=== PATIENT | female | born 1935 | race Caucasian/White ===

== ENCOUNTER 2017-02-17 15:41 | Emergency (ER) | payer MEDICARE, BC ==
--- NOTE | 2017-02-17 16:28 | EDM.PDOC ---
ED HPI GENERAL MEDICAL PROBLEM - General Chief Complaint: Respiratory Problem Stated Complaint: Shortness of breath Time Seen by Provider: 02/17/17 16:15 Source of Information: Reports: Patient, RN Notes Reviewed History Limitations: Reports: No Limitations - History of Present Illness INITIAL COMMENTS - FREE TEXT/NARRATIVE: 81 year old female sent to the ED by her PCP Dr. Bev Del Cid. Three days ago she presented to the clinic for dyspnea with exertion. She had bilateral lower extremity ultrasound done and was told she has blood clot in her right leg. She was started on Xarelto. A d-dimer was ordered but is a send out. Today the d-dimer came back significantly elevated. The patient was notified and was brought in for a PE study. She was found to have bilateral PEs and was sent here for further evaluation. She was also started on Amoicillin for a lower left lower extremity cellulitis. The patient reports that she's had DVTs in the past and been off and on blood thinners. She denies history of clotting disorders. No previous PE. She reports dyspnea on exertion for the past week. She denies pleuritic chest pain, cough, wheezing or hemoptysis. She reports a brief episode of chest pain last week that resolved on it's own. On Friday she had heart burn and tool Rolaids and her symptoms resolved. No additional chest pain. She denies cardiac history. No recent travel. She is not on any hormonal replacement therapy. Right Leg Pain Score (Numeric/FACES): 4 - Related Data Allergies Allergy/AdvReac Type Severity Reaction Status Date / Time propoxyphene Allergy Nausea and Verified 03/15/14 12:04 Vomiting sitagliptin [From Januvia] Allergy Edema Verified 02/17/17 15:53 Home Meds: Home Meds Aspirin [Halfprin] 81 mg PO DAILY 03/15/14 [History] Atenolol [Tenormin] 25 mg PO DAILY 03/15/14 [History] Furosemide 40 mg PO BID 03/15/14 [History] Losartan [Cozaar] 50 mg PO DAILY 03/15/14 [History] Lutein Extract/Zeaxanthin Ext [Lutein 15 MG Softgel] 1 cap PO DAILY 03/15/14 [ History] metFORMIN [Glucophage] 1,000 mg PO DAILY 03/15/14 [History] metFORMIN [Glucophage] 500 mg PO BEDTIME 03/15/14 [History] Amoxicillin 500 mg PO TID 02/17/17 [History] Oxybutynin Chloride [Ditropan Xl] 5 mg PO DAILY 02/17/17 [History] Potassium Chloride 20 meq PO DAILY 02/17/17 [History] Rivaroxaban [Xarelto] 20 mg PO DAILY 02/17/17 [History] glipiZIDE [Glipizide ER] 20 mg PO DAILY 02/17/17 [History] Past Medical History HEENT History: Reports: Impaired Vision Other HEENT History: wears corrective lenses Cardiovascular History: Reports: Blood Clots/VTE/DVT, Hypertension Respiratory History: Reports: PE, SOB Gastrointestinal History: Reports: GERD Genitourinary History: Reports: Urinary Incontinence 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 RADIOLOGY History: Reports: , Other (See Below) Other OB/BYN History: bilateral breast reduction for back pain Endocrine/Metabolic History: Reports: Diabetes, Type II Hematologic History: Reports: Anticoagulation Therapy - Infectious Disease History Infectious Disease History: Reports: Chicken Pox, Measles, Mumps - Past Surgical History HEENT Surgical History: Reports: None Cardiovascular Surgical History: Reports: None Respiratory Surgical History: Reports: None GI Surgical History: Reports: Appendectomy Female Surgical History: Reports: Hysterectomy Endocrine Surgical History: Reports: None Musculoskeletal Surgical History: Reports: Other (See Below) Other Musculoskeletal Surgeries/Procedures:: 2003 bilateral total knee replacement Social & Family History - Tobacco Use Smoking Status *Q: Former Smoker Used Tobacco, but Quit: Yes Month Tobacco Last Used: 1981 Second Hand Smoke Exposure: No - Caffeine Use Caffeine Use: Reports: Coffee - Alcohol Use Days Per Week of Alcohol Use: 0 Number of Drinks Per Day: 0 Total Drinks Per Week: 0 - Recreational Drug Use Recreational Drug Use: No Drug Use in Last 12 Months: No ED ROS GENERAL - Review of Systems Review Of Systems: See Below Constitutional: Reports: No Symptoms. Denies: Fever, Chills Respiratory: Reports: Shortness of Breath. Denies: Wheezing, Pleuritic Chest Pain, Cough, Sputum, Hemoptysis Cardiovascular: Reports: Chest Pain, Dyspnea on Exertion. Denies: Edema, Lightheadedness, Palpitations, Syncope Musculoskeletal: Reports: Other (left lower extremity redness and swelling. ) Skin: Reports: Change in Color (lower extremities ) ED EXAM, GENERAL - Physical Exam Exam: See Below Exam Limited By: No Limitations General Appearance: Alert, No Apparent Distress, Obese Respiratory/Chest: No Respiratory Distress, Lungs Clear, Normal Breath Sounds, No Accessory Muscle Use, Chest Non-Tender Cardiovascular: Normal Peripheral Pulses, Regular Rate, Rhythm, No Murmur, Other (Small amount of non-pitting edema to feet bilaterally. She has swelling to the left calf, proximal to the red area of cellulitis. ) GI/Abdominal: Normal Bowel Sounds, Soft, Non-Tender Extremities: Increased Warmth (left ankle and calf), Redness (left ankle and calf). No: Stephanie's Sign, Leg Pain Neurological: Alert, Normal Cognition EKG INTERPRETATION EKG Date: 02/17/17 Time: 16:45 Rhythm: NSR Rate (Beats/Min): 62 [place]: Normal P-Wave: Present QRS: Normal ST-T: Normal QT: Normal EKG Interpretation Comments: EKG read by Dr. Tierney. Occasional PACs. Lowe voltage precordial leads. T wave inverted III and flat in AVF - nonspecific. Course - Vital Signs Last Recorded V/S: Last Vital Signs Temp 97.4 F 02/17/17 15:50 Pulse 63 02/17/17 18:25 Resp 20 02/17/17 18:25 BP 131/68 02/17/17 18:25 Pulse Ox 98 02/17/17 18:25 - Orders/Labs/Meds Orders: Active Orders 24 hr Category Date Time Status EKG 12 Lead [EKG Documentation Completion] [RC] STAT Care 02/17/17 16:27 Active Labs: Laboratory Tests 02/17/17 02/17/17 02/17/17 Range/Units 15:55 15:55 16:48 WBC 8.85 (3.98-10.04) K/mm3 RBC 4.97 (3.98-5.22) M/mm3 Hgb 13.8 (11.2-15.7) gm/L Hct 40.3 (34.1-44.9) % MCV 81.1 (79.4-94.8) fl MCH 27.8 (25.6-32.2) pg MCHC 34.2 (32.2-35.5) g/dl RDW Std Deviation 41.9 (36.4-46.3) fL Plt Count 209 (182-369) K/mm3 MPV 11.3 (9.4-12.3) fl Neutrophils % (Manual) 66 H (40-60) % Band Neutrophils % 3 (0-10) % Lymphocytes % (Manual) 21 (20-40) % Atypical Lymphs % 0 % Monocytes % (Manual) 9 (2-10) % Eosinophils % (Manual) 1 (0.7-5.8) % Basophils % (Manual) 0 L (0.1-1.2) Platelet Estimate Adequate RBC Morph Comment Normal Sodium 140 (136-145) mEq/L Potassium 4.1 (3.5-5.1) mEq/L Chloride 102 (98-107) mEq/L Carbon Dioxide 27 (21-32) mEq/L Anion Gap 15.1 H (5-15) BUN 29 H (7-18) mg/dL Creatinine 1.3 H (0.55-1.02) mg/dL Est Cr Clr Drug Dosing 28.55 mL/min Estimated GFR (MDRD) 39 (>60) mL/min BUN/Creatinine Ratio 22.3 H (14-18) Glucose 229 H (83-115) mg/dL Calcium 10.0 (8.5-10.1) mg/dL Total Bilirubin 0.5 (0.2-1.0) mg/dL AST 17 (15-37) U/L ALT 23 (14-59) U/L Alkaline Phosphatase 75 (46-116) U/L Troponin I < 0.017 (0.00-0.056) ng/mL [id number] Pept 732 H (0-450) pg/mL Total Protein 7.0 (6.4-8.2) g/dl Albumin 3.3 L (3.4-5.0) g/dl Globulin 3.7 gm/dL Albumin/Globulin Ratio 0.9 L (1-2) - Re-Assessments/Exams Free Text/Narrative Re-Assessment/Exam: CBC is normal. CMP reveals mildly elevated kidney function. Troponin is WNL. Pro -BNP is mildly elevated at 730. She is currently on lasix and this was increased to BID today. Records obtained from [facility]. Her d-dimer was 6. CT read by Radiologist Dr. Morillo. Impression: PE in the left upper and both lower lobes. Saddle pulmonary embolism. Lower extremity doppler impression: Incomplete compressibility in the high posteriortibial and right popliteal veins with filling defect and lack of color flow. Findings consistent with DVT ont he right. No DVT on left. Discussed case with Dr. Tierney who agrees with increasing her Lasix. Her vitals are stable. She is not tachycardic and oxygen saturation is well above 90 % on room air. She is not in acute heart failure, therefore admission to hosptial is not indicated. Patient is to continue Xarelto. She was instructed to avoid NSAIDs and ASA. She was instructed to continue her antibiotics. She has a f/u appointment with Dr. Del Cid on of this week. She was instructed to keep this appointment. She was thoroughly educated on return precautions. Departure - Departure Time of Disposition: 18:07 Disposition: Home, Self-Care 01 Condition: Good Clinical Impression: Dyspnea on exertion Pulmonary embolism Qualifiers: Pulmonary embolism type: saddle Chronicity: acute Acute cor pulmonale presence : without acute cor pulmonale Qualified Code(s): I26.92 - Saddle embolus of pulmonary artery without acute cor pulmonale - Discharge Information Instructions: Pulmonary Embolism Referrals: Bev Del Cid MD [Primary Care Provider] - Forms: ED Department Discharge Additional Instructions: Take lasix 40mg twice a day Continue Xarelto 20mg daily as prescribed Follow-up with Dr. Del Cid on as scheduled Return to ER with any new or worsening symptoms - My Orders Last 24 Hours: My Active Orders 02/17/17 16:27 EKG 12 Lead [EKG Documentation Completion] [RC] STAT - Assessment/Plan Last 24 Hours: My Active Orders 02/17/17 16:27 EKG 12 Lead [EKG Documentation Completion] [RC] STAT
[2017-02-17 18:37] VITALS: BP 131/68
== END 2017-02-17 18:25 | disposition home or self-care (01) ==
LOC: JD.ED 15:41
DX: R06.00 Dyspnea, unspecified (principal); I26.92 Saddle embolus of pulmonary artery without acute cor pulmonale; I10 Essential (primary) hypertension; K21.9 Gastro-esophageal reflux disease without esophagitis; E11.9 Type 2 diabetes mellitus without complications; Z86.718 Personal history of other venous thrombosis and embolism; Z79.82 Long term (current) use of aspirin; Z79.84 Long term (current) use of oral hypoglycemic drugs; Z79.899 Other long term (current) drug therapy; Z90.49 Acquired absence of other specified parts of digestive tract; Z90.710 Acquired absence of both cervix and uterus; Z96.653 Presence of artificial knee joint, bilateral; Z87.891 Personal history of nicotine dependence; Z88.8 Allergy status to other drugs, medicaments and biological substances
CPT/HCPCS: 36415; 80053; 83880; 84484; 85025; 93005; 99284; 99284-25

== ENCOUNTER 2017-02-20 11:34 | Inpatient (IN) | payer MEDICARE, BC ==
[2017-02-20] MEDS ORDERED: traMADol 50 MG Tab PO ONE (12:26)
--- NOTE | 2017-02-20 12:43 | EDM.PDOC ---
ED HPI GENERAL MEDICAL PROBLEM - General Chief Complaint: Lower Extremity Injury/Pain Stated Complaint: Leg pain Time Seen by Provider: 02/20/17 12:20 Source of Information: Reports: Patient, RN Notes Reviewed History Limitations: Reports: No Limitations - History of Present Illness INITIAL COMMENTS - FREE TEXT/NARRATIVE: 81 year old female present to the ED with worsening left lower extremity pain, swelling, and redness. Her PCP saw her in the clinic on Friday of last week and started her on Amoxicillin. Today is day 6 of antibiotics. She's had no improvement in symptoms and says the pain is worsening. She has tried Tylenol with no relief in pain. She has developed swelling to her left foot and calf. The redness has remained unchanged. No fever, chills, or sweats. She has been elevating the leg with some relief in symptoms. She had an ultrasound done of her lower extremities on Friday and was found to have a DVT in her right lower extremity. She was started on Xarelto on Friday. She then had a CT angio on Friday and was found to have pulmonary embolisms as well. She was sent to the ER following her CT. I saw her on Friday and she was stable from a cardiopulmonary standpoint on Friday. Today she reports dyspnea with exertion which was present on Friday. She denies dyspnea at rest. She reports substernal chest pressure at times. Left Leg Pain Score (Numeric/FACES): 10 - Related Data Allergies Allergy/AdvReac Type Severity Reaction Status Date / Time propoxyphene Allergy Nausea and Verified 03/15/14 12:04 Vomiting sitagliptin [From Junuvia] Allergy Edema Verified 02/17/17 15:53 Home Meds: Home Meds Aspirin [Halfprin] 81 mg PO DAILY 03/15/14 [History] Atenolol [Tenormin] 25 mg PO DAILY 03/15/14 [History] Furosemide 40 mg PO BID 03/15/14 [History] Losartan [Cozaar] 50 mg PO DAILY 03/15/14 [History] Lutein Extract/Zeaxanthin Ext [Lutein 15 MG Softgel] 1 cap PO DAILY 03/15/14 [ History] metFORMIN [Glucophage] 1,000 mg PO DAILY 03/15/14 [History] metFORMIN [Glucophage] 500 mg PO BEDTIME 03/15/14 [History] Amoxicillin 500 mg PO TID 02/17/17 [History] Oxybutynin Chloride [Ditropan Xl] 5 mg PO DAILY 02/17/17 [History] Potassium Chloride 20 meq PO DAILY 02/17/17 [History] Rivaroxaban [Xarelto] 20 mg PO DAILY 02/17/17 [History] glipiZIDE [Glipizide ER] 20 mg PO DAILY 02/17/17 [History] Amoxicillin 500 mg PO TID 02/20/17 [History] Rivaroxaban [Xarelto] 10 mg PO 02/20/17 [History] Past Medical History HEENT History: Reports: Impaired Vision Other HEENT History: wears corrective lenses Cardiovascular History: Reports: Blood Clots/VTE/DVT, Hypertension Respiratory History: Reports: PE, SOB Gastrointestinal History: Reports: GERD Genitourinary History: Reports: Urinary Incontinence 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 History: Reports: , Other (See Below) Other OB/BYN History: bilateral breast reduction for back pain Endocrine/Metabolic History: Reports: Diabetes, Type II Hematologic History: Reports: Anticoagulation Therapy - Infectious Disease History Infectious Disease History: Reports: Chicken Pox, Measles, Mumps - Past Surgical History HEENT Surgical History: Reports: None Cardiovascular Surgical History: Reports: None Respiratory Surgical History: Reports: None GI Surgical History: Reports: Appendectomy Female Surgical History: Reports: Hysterectomy Endocrine Surgical History: Reports: None Musculoskeletal Surgical History: Reports: Other (See Below) Other Musculoskeletal Surgeries/Procedures:: 2003 bilateral total knee replacement Social & Family History - Tobacco Use Smoking Status *Q: Former Smoker Used Tobacco, but Quit: Yes Month Tobacco Last Used: 1 Second Hand Smoke Exposure: No - Caffeine Use Caffeine Use: Reports: Coffee - Alcohol Use Days Per Week of Alcohol Use: 0 Number of Drinks Per Day: 0 Total Drinks Per Week: 0 - Recreational Drug Use Recreational Drug Use: No Drug Use in Last 12 Months: No Review of Systems - Review of Systems Review Of Systems: See Below Respiratory: Reports: Shortness of Breath. Denies: Wheezing, Pleuritic Chest Pain, Cough, Sputum, Hemoptysis Cardiovascular: Reports: Chest Pain, Edema. Denies: Lightheadedness, Palpitations GI/Abdominal: Reports: No Symptoms ED EXAM, GENERAL - Physical Exam Exam: See Below Exam Limited By: No Limitations General Appearance: Alert, Mild Distress, Obese Respiratory/Chest: No Respiratory Distress, Lungs Clear, Normal Breath Sounds, No Accessory Muscle Use, Chest Non-Tender Cardiovascular: Normal Peripheral Pulses, Regular Rate, Rhythm, No Murmur, Other (non-pitting edema to left foot and calf. No edema to the right lower extremity.) GI/Abdominal: Normal Bowel Sounds, Soft, Non-Tender Neurological: Alert, Oriented, Normal Cognition, No Motor/Sensory Deficits Skin Exam: Warm, Dry, Intact, Erythema (left lower extermity from ankle to mid- calf region. unchanged from Friday's exam. ), Increased Warmth (left lower extremity ) Course - Vital Signs Last Recorded V/S: Last Vital Signs Temp 97.8 F 02/20/17 11:54 Pulse 67 02/20/17 11:54 Resp 18 02/20/17 11:54 BP 154/90 H 02/20/17 11:54 Pulse Ox 98 02/20/17 11:54 - Orders/Labs/Meds Orders: Active Orders 24 hr Category Date Time Status EKG 12 Lead [EKG Documentation Completion] [RC] STAT Care 02/20/17 12:43 Active CBC WITH AUTO DIFF [HEME] Stat Lab 02/20/17 12:43 Results Labs: Laboratory Tests 02/20/17 02/20/17 02/20/17 Range/Units 12:43 12:43 12:43 WBC 7.88 (3.98-10.04) K/mm3 RBC 4.72 (3.98-5.22) M/mm3 Hgb 13.2 (11.2-15.7) gm/L Hct 38.5 (34.1-44.9) % MCV 81.6 (79.4-94.8) fl MCH 28.0 (25.6-32.2) pg MCHC 34.3 (32.2-35.5) g/dl RDW Std Deviation 41.6 (36.4-46.3) fL Plt Count 238 (182-369) K/mm3 MPV 10.7 (9.4-12.3) fl Neut % (Auto) 70.0 (34.0-71.1) % Lymph % (Auto) 21.6 (19.3-51.7) % [place] % (Auto) 5.3 (4.7-12.5) % Eos % (Auto) 1.8 (0.7-5.8) Baso % (Auto) 0.9 (0.1-1.2) % Neut # (Auto) 5.52 (1.56-6.13) K/mm3 Lymph # (Auto) 1.70 (1.18-3.74) K/mm3 [place] # (Auto) 0.42 H (0.24-0.36) K/mm3 Eos # (Auto) 0.14 (0.04-0.36) K/mm3 Baso # (Auto) 0.07 (0.01-0.08) K/mm3 Sodium 137 (136-145) mEq/L Potassium 3.8 (3.5-5.1) mEq/L Chloride 101 (98-107) mEq/L Carbon Dioxide 27 (21-32) mEq/L Anion Gap 12.8 (5-15) BUN 25 H (7-18) mg/dL Creatinine 1.3 H (0.55-1.02) mg/dL Est Cr Clr Drug Dosing TNP Estimated GFR (MDRD) 39 (>60) mL/min BUN/Creatinine Ratio 19.2 H (14-18) Glucose 286 H (83-115) mg/dL Calcium 9.4 (8.5-10.1) mg/dL Total Bilirubin 0.5 (0.2-1.0) mg/dL AST 14 L (15-37) U/L ALT 23 (14-59) U/L Alkaline Phosphatase 75 (46-116) U/L Troponin I < 0.017 (0.00-0.056) ng/mL C-Reactive Protein 3.9 H* (<1.0) mg/dL [id number] Pept 528 H (0-450) pg/mL Total Protein 6.9 (6.4-8.2) g/dl Albumin 3.1 L (3.4-5.0) g/dl Globulin 3.8 gm/dL Albumin/Globulin Ratio 0.8 L (1-2) Meds: Medications Discontinued Medications Generic Name Dose Route Start Last Admin Trade Name Freq PRN Reason Stop Dose Admin Tramadol HCl 50 mg 02/20/17 12:26 02/20/17 12:35 Ultram PO 02/20/17 12:27 50 mg ONETIME ONE Administration - Re-Assessments/Exams Free Text/Narrative Re-Assessment/Exam: Labs reveal normal CBC. WBC is normal and stable from Friday. CRP is mildly elevated at 3.9. CMP reveals BUN 25, creatinine 1.3, glucose 286. Troponin is WNL. EKG reveals SR 59 bpm with no acute changes. Stable from Friday. Read by Dr. Saenz Discussed case with Dr. aSenz. He also examined the patient. We both agree the patient has underlying venous insufficiency but cannot rule out cellulitis. She has failed outpatient antibiotic treatment and would benefit from admission. I spoke to Hospitalist Dr. Hutchison who has accepted care of the patient. She will be admitted as inpatient for cellulitis. Departure - Departure Time of Disposition: 14:09 Disposition: Admitted As Inpatient 66 Condition: Good Clinical Impression: Venous insufficiency Cellulitis Qualifiers: Site of cellulitis: extremity Site of cellulitis of extremity: lower extremity Laterality: left Qualified Code(s): L03.116 - Cellulitis of left lower limb - Discharge Information Referrals: Bev Del Cid MD [Primary Care Provider] - Forms: ED Department Discharge - My Orders Last 24 Hours: My Active Orders 02/20/17 12:43 EKG 12 Lead [EKG Documentation Completion] [RC] STAT CBC WITH AUTO DIFF [HEME] Stat - Assessment/Plan Last 24 Hours: My Active Orders 02/20/17 12:43 EKG 12 Lead [EKG Documentation Completion] [RC] STAT CBC WITH AUTO DIFF [HEME] Stat
[2017-02-20] MEDS ORDERED: Sodium Chloride 0.9% 10 ML Syringe FLUSH PRN (14:09)
--- NOTE | 2017-02-20 14:20 | PCM.HP ---
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 Patient was seen Friday at her primary care' clinic and was treated with amoxicillin. However she feels her leg is not getting any better and pain is getting worse. The redness has remained unchanged. Patient denies any signs of systemic infection. She has been elevating her leg to get some relief. On the same day she was seen at the clinic, patient was found to have DVT on Duplex U/S and PE on CTA. Currently she is on xarelto for treatment. Patient was initially seen on Friday in the emergency department but then was discharged home after no significant workup. Today, she came back for worsening lower extremity complaints. Initial workup in the emergency department shows an unremarkable CBC. Her chemistry is remarkable for BUN of 25, creatinine of 1.3, glucose of 286, AST of 14, proBNP of 528 and albumin of 3.1. Thyroid panel are normal as well as her initial troponin level. Her hemoglobin A1c is 10.50. Her UA is negative for UTI. Since being admitted for medical management of diabetic cellulitis. She is full code. Left Leg Pain Score (Numeric/FACES): 10 Left Ankle Pain Score (Numeric/FACES): 7 - Related Data Allergies/Adverse Reactions: Allergies Allergy/AdvReac Type Severity Reaction Status Date / Time propoxyphene AdvReac Nausea and Verified 02/20/17 14:37 Vomiting sitagliptin [From Januvia] AdvReac Edema Verified 02/20/17 14:37 Home Medications: Home Meds Aspirin [Halfprin] 81 mg PO DAILY 03/15/14 [History] Atenolol [Tenormin] 25 mg PO DAILY 03/15/14 [History] Furosemide 40 mg PO BID 09/16/14 [History] Losartan [Cozaar] 50 mg PO DAILY 03/15/14 [History] Lutein Extract/Zeaxanthin Ext [Lutein 15 MG Softgel] 1 cap PO DAILY 03/15/14 [ History] metFORMIN [Glucophage] 1,000 mg PO DAILY 03/15/14 [History] metFORMIN [Glucophage] 500 mg PO BEDTIME 03/15/14 [History] Oxybutynin Chloride [Ditropan Xl] 5 mg PO DAILY 02/17/17 [History] glipiZIDE [Glipizide ER] 20 mg PO DAILY 02/17/17 [History] Amoxicillin 500 mg PO TID 02/20/17 [History] Loperamide [Imodium] 4 mg PO ASDIRECTED PRN 02/20/17 [History] Rivaroxaban [Xarelto] 10 mg PO DAILY 02/20/17 [History] Past Medical History HEENT History: Reports: Impaired Vision Other HEENT History: wears corrective lenses Cardiovascular History: Reports: Blood Clots/VTE/DVT, Hypertension Respiratory History: Reports: PE, SOB Gastrointestinal History: Reports: GERD Genitourinary History: Reports: Urinary Incontinence [employer]STRUCTOR History: Reports: , Other (See Below) Other OB/BYN History: bilateral breast reduction for back pain Endocrine/Metabolic History: Reports: Diabetes, Type II Hematologic History: Reports: Anticoagulation Therapy - Infectious Disease History Infectious Disease History: Reports: Chicken Pox, Measles, Mumps - Past Surgical History HEENT Surgical History: Reports: None Cardiovascular Surgical History: Reports: None Respiratory Surgical History: Reports: None GI Surgical History: Reports: Appendectomy Female Surgical History: Reports: Hysterectomy Endocrine Surgical History: Reports: None Musculoskeletal Surgical History: Reports: Other (See Below) Other Musculoskeletal Surgeries/Procedures:: 2004 bilateral total knee replacement Social & Family History - Tobacco Use Smoking Status *Q: Former Smoker Used Tobacco, but Quit: Yes Month Tobacco Last Used: 1 Second Hand Smoke Exposure: No - Caffeine Use Caffeine Use: Reports: Coffee - Alcohol Use Days Per Week of Alcohol Use: 0 Number of Drinks Per Day: 0 Total Drinks Per Week: 0 - Recreational Drug Use Recreational Drug Use: No Drug Use in Last 12 Months: No H&P Review of Systems - Review of Systems: Review Of Systems: See Below General: Denies: Fever, Chills, Malaise, Weakness, Fatigue HEENT: Reports: No Symptoms Pulmonary: Reports: Shortness of Breath. Denies: Cough Cardiovascular: Reports: Edema Gastrointestinal: Denies: Abdominal Pain, Nausea, Vomiting Genitourinary: Reports: No Symptoms Musculoskeletal: Reports: No Symptoms Skin: Reports: Erythema (on left lower leg), Change in Color (right lower leg). Denies: Rash Psychiatric: Denies: Confusion, Depression, Anxiety, Agitation, Hallucinations, Suicidal Ideation Neurological: Reports: Gait Disturbance. Denies: Confusion, Difficulty Walking , Weakness Hematologic/Lymphatic: Reports: No Symptoms Immunologic: Reports: No Symptoms Exam - Exam Exam: See Below - Vital Signs Vital Signs: Last Vital Signs Temp 36.6 C 02/20/17 11:54 Pulse 67 02/20/17 11:54 Resp 18 02/20/17 11:54 BP 154/90 H 02/20/17 11:54 Pulse Ox 98 02/20/17 11:54 Weight: 119.748 kg - Exam General: Alert, Oriented, Cooperative, Other (Morbidly Obese). No: Mild Distress HEENT: Conjunctiva Clear, EACs Clear, EOMI, Hearing Intact, Mucosa Moist & [place] , Nares Patent, Normal Nasal Septum, Posterior Pharynx Clear, Pupils Equal, Pupils Reactive Neck: Supple, Trachea Midline, Full Range of Motion, Other (short and thick). No: JVD Lungs: Clear to Auscultation, Normal Respiratory Effort Cardiovascular: Regular Rate, Regular Rhythm GI/Abdominal Exam: Normal Bowel Sounds, Soft, Non-Tender, No Organomegaly, No Distention, No Abnormal Bruit, No Mass, Other (Obese) (Female) Exam: Deferred Rectal (Female) Exam: Deferred Back Exam: Normal Inspection, Decreased Range of Motion Extremities: Normal Range of Motion, Leg Pain, Other (Right LE Extremity: hyperpigmentation on walker, good capillary refill, and reduced peripheral pulses ; Left LE Extremity: erythema and mild edema on walker, warm to the touch, not weepy, and reduced peripheral pulses). No: Joint Swelling, Stephanie's Sign Skin: Warm, Dry, Intact Neuro Extensive - Mental Status: Oriented x3, Normal Cognition, Memory Intact Neuro Extensive - Motor, Sensory, Reflexes: CN II-XII Intact, Abnormal Gait Psychiatric: Alert, Normal Affect, Normal Mood - Patient Data Lab Results Last 24 hrs: Laboratory Results - last 24 hr 02/20/17 02/20/17 02/20/17 Range/Units 12:43 12:43 12:43 WBC 7.88 (3.98-10.04) K/mm3 RBC 4.72 (3.98-5.22) M/mm3 Hgb 13.2 (11.2-15.7) gm/L Hct 38.5 (34.1-44.9) % MCV 81.6 (79.4-94.8) fl MCH 28.0 (25.6-32.2) pg MCHC 34.3 (32.2-35.5) g/dl RDW Std Deviation 41.6 (36.4-46.3) fL Plt Count 238 (182-369) K/mm3 MPV 10.7 (9.4-12.3) fl Neut % (Auto) 70.0 (34.0-71.1) % Lymph % (Auto) 21.6 (19.3-51.7) % [place] % (Auto) 5.3 (4.7-12.5) % Eos % (Auto) 1.8 (0.7-5.8) Baso % (Auto) 0.9 (0.1-1.2) % Neut # (Auto) 5.52 (1.56-6.13) K/mm3 Lymph # (Auto) 1.70 (1.18-3.74) K/mm3 [place] # (Auto) 0.42 H (0.24-0.36) K/mm3 Eos # (Auto) 0.14 (0.04-0.36) K/mm3 Baso # (Auto) 0.07 (0.01-0.08) K/mm3 Sodium 137 (136-145) mEq/L Potassium 3.8 (3.5-5.1) mEq/L Chloride 101 (98-107) mEq/L Carbon Dioxide 27 (21-32) mEq/L Anion Gap 12.8 (5-15) BUN 25 H (7-18) mg/dL Creatinine 1.3 H (0.55-1.02) mg/dL Est Cr Clr Drug Dosing TNP Estimated GFR (MDRD) 39 (>60) mL/min BUN/Creatinine Ratio 19.2 H (14-18) Glucose 286 H (83-115) mg/dL Calcium 9.4 (8.5-10.1) mg/dL Total Bilirubin 0.5 (0.2-1.0) mg/dL AST 14 L (15-37) U/L ALT 23 (14-59) U/L Alkaline Phosphatase 75 (46-116) U/L Troponin I < 0.017 (0.00-0.056) ng/mL C-Reactive Protein 3.9 H* (<1.0) mg/dL Ftt-O-Mqqdubrilpr Pept 528 H (0-450) pg/mL Total Protein 6.9 (6.4-8.2) g/dl Albumin 3.1 L (3.4-5.0) g/dl Globulin 3.8 gm/dL Albumin/Globulin Ratio 0.8 L (1-2) Result Diagrams: 02/22/17 06:40 02/22/17 06:40 *Q Meaningful Use (ADM) - VTE *Q VTE Criteria *Q: - Stroke *Q Stroke Criteria *Q: - AMI *Q AMI Criteria *Q: Problem List Initiated/Reviewed/Updated: Yes Orders Last 24hrs: Active Orders 24 hr Category Date Time Status EKG 12 Lead [EKG Documentation Completion] [RC] STAT Care 02/20/17 12:43 Active Peripheral IV Care [RC] . DIRECTED Care 02/20/17 14:10 Active CBC WITH AUTO DIFF [HEME] Stat Lab 02/20/17 12:43 Results Sodium Chloride 0.9% [Saline Flush] Med 02/20/17 14:09 Active 10 ml FLUSH ASDIRECTED PRN Peripheral IV Insertion Adult [OM.PC] Stat Oth 02/20/17 14:10 Ordered Medication Orders Sodium Chloride (Saline Flush) 10 ml FLUSH ASDIRECTED PRN PRN Reason: Keep Vein Open Assessment/Plan Comment:: Assessment/Plan: Acute: Left Lower Extremity Cellulitis - Risk factors: PAD and DM - CBC is normal and CRP is minimally elevated at 3.9 - Patients has signs of PAD - This fits more statis dermatitis - Continue IV Vancomycin - Arterial Study Hyperglycemia with DM2 - Her last 2 A1C were in the 6s - Her A1C now is 10.50 - Continue oral regimen - ISS with Accu-check QIDandHS - Dietary and Diabetic consult Obesity with BMI of 45.9 - Dietary consult for weight management - Advised LSM Chronic: Impaired Vision PE/DVT on Xarelto GERD Urinary Incontinence DM2 Obesity Plan: Admit to Med-Surg Routine AM Labs Resume Home Meds PT/OT consult DVT PPx: Xarelto SW/CM for D/c planing Code status: 1
[2017-02-20] MEDS ORDERED: Acetaminophen 325 MG Tab PO PRN (14:24)
[2017-02-20] MEDS ORDERED: Albuterol/Ipratropium 3.0-0.5 MG/3 ML Neb Soln NEB PRN (14:24)
[2017-02-20] MEDS ORDERED: Promethazine 12.5 MG in Sodium Chloride 0.9% 50 ML IV PRN (14:24)
[2017-02-20] MEDS ORDERED: Docusate Sodium 100 MG Cap PO PRN (14:24)
[2017-02-20] MEDS ORDERED: Ondansetron 4 MG/2 ML SDV IV PRN (14:24)
[2017-02-20] MEDS ORDERED: Bisacodyl 5 MG Tab PO PRN (14:24)
[2017-02-20] MEDS ORDERED: HYDROmorphone 0.5 MG/0.5 ML Syringe IVPUSH PRN (14:24)
[2017-02-20] MEDS ORDERED: Polyethylene Glycol 3350 Powder 17 GM Packet PO PRN (14:31)
[2017-02-20] MEDS ORDERED: Loperamide 2 MG Cap PO PRN (14:34)
[2017-02-20] MEDS ORDERED: hydrALAZINE 20 MG/ML SDV IVPUSH PRN (14:35)
[2017-02-20] MEDS ORDERED: LORazepam 2 MG/ML MDV IVPUSH PRN (14:35)
[2017-02-20] MEDS ORDERED: Metoprolol Tartrate 5 MG/5 ML SDV IVPUSH PRN (14:35)
[2017-02-20] MEDS ORDERED: LORazepam 2 MG/ML MDV IV ONE (14:45)
[2017-02-20] MEDS ORDERED: 50% Dextrose in Water 50 ML Syringe IVPUSH PRN (16:04)
[2017-02-20] MEDS ORDERED: Pneumococcal Polyvalent-23 Vaccine 0.5 ML SDV IM ONE (17:19)
[2017-02-20] MEDS: Sodium Chloride 0.9% 1,000 ML IV SCH (17:52)
[2017-02-20] MEDS: Furosemide 40 MG Tab PO SCH (17:53)
[2017-02-20] MEDS: Insulin Aspart 100 Units/ML 3 ML Pen SUBCUT SCH ×5 (17:53→21:44)
[2017-02-20] MEDS ORDERED: Temazepam 7.5 MG Cap PO PRN (21:00)
[2017-02-20] MEDS: metFORMIN 500 MG Tab PO SCH (21:44)
[2017-02-21] MEDS: Acetaminophen/HYDROcodone 325-5 MG Tab PO PRN ×3 (03:07→21:09)
[2017-02-21] MEDS: Sodium Chloride 0.9% 1,000 ML IV SCH ×3 (03:08→23:00)
[2017-02-21] MEDS: glipiZIDE 5 MG Tab.ER PO SCH (06:58)
[2017-02-21] MEDS: Furosemide 40 MG Tab PO SCH ×2 (06:59→13:13)
[2017-02-21] MEDS: Insulin Aspart 100 Units/ML 3 ML Pen SUBCUT SCH ×4 (06:59→21:09)
[2017-02-21] MEDS ORDERED: Vancomycin 1 GM, Vancomycin 250 MG in Sodium Chloride 0.9% 250 ML IV SCH (08:00)
[2017-02-21] MEDS: Multivitamins with Minerals/Folic Acid/Lutein/Zeaxanth Tab PO SCH (08:27)
[2017-02-21] MEDS: Atenolol 25 MG Tab PO SCH (08:27)
[2017-02-21] MEDS: Aspirin 81 MG Tab.EC PO SCH (08:27)
[2017-02-21] MEDS: metFORMIN 500 MG Tab PO SCH ×2 (08:27→21:05)
[2017-02-21] MEDS: Rivaroxaban 10 MG Tab PO SCH (08:27)
[2017-02-21] MEDS: Oxybutynin 5 MG Tab.ER PO SCH (08:27)
[2017-02-21] MEDS: Losartan 25 MG Tab PO SCH (08:28)
--- NOTE | 2017-02-21 09:59 | PCM.PN ---
- General Info Date of Service: 02/21/17 Admission Dx/Problem (Free Text): Cellulitis Failed Outpatient Treatment Subjective Update: Follow Up Functional Status: Reports: Pain Controlled, Tolerating Diet, Ambulating, Urinating. Denies: New Symptoms - Review of Systems General: Denies: Fever, Weakness, Fatigue, Malaise, Chills HEENT: Reports: No Symptoms Pulmonary: Denies: Shortness of Breath Cardiovascular: Denies: Chest Pain Gastrointestinal: Denies: Abdominal Pain, Nausea, Vomiting Genitourinary: Reports: No Symptoms Musculoskeletal: Reports: No Symptoms Skin: Reports: No Symptoms Neurological: Denies: Confusion, Difficulty Walking, Weakness, Gait Disturbance Psychiatric: Denies: Depression, Anxiety, Agitation, Cravings, Hallucinations, Suicidal Ideation Systems Review Comment:: No overnight issues. She slept pretty good. She has no new complaints. Her legs are not getting any worse. Her Mg is low at 1.3 this morning. She has been ambulating w/o much difficulties. - Patient Data Vitals - Most Recent: Last Vital Signs Temp 36.6 C 02/21/17 08:25 Pulse 60 02/21/17 08:27 Resp 16 02/21/17 08:25 BP 129/81 02/21/17 08:28 Pulse Ox 95 02/21/17 08:25 Weight - Most Recent: 117.48 kg I&O - Last 24 Hours: Intake & Output 02/20/17 02/21/17 02/21/17 22:59 06:59 14:59 Intake Total 1810 Output Total 900 Balance 910 Lab Results Last 24 Hours: Laboratory Results - last 24 hr 02/20/17 02/20/17 02/20/17 Range/Units 17:26 19:40 21:23 WBC (3.98-10.04) K/mm3 RBC (3.98-5.22) M/mm3 Hgb (11.2-15.7) gm/L Hct (34.1-44.9) % MCV (79.4-94.8) fl MCH (25.6-32.2) pg MCHC (32.2-35.5) g/dl RDW Std Deviation (36.4-46.3) fL Plt Count (182-369) K/mm3 MPV (9.4-12.3) fl Neut % (Auto) (34.0-71.1) % Lymph % (Auto) (19.3-51.7) % [place] % (Auto) (4.7-12.5) % Eos % (Auto) (0.7-5.8) Baso % (Auto) (0.1-1.2) % Neut # (Auto) (1.56-6.13) K/mm3 Lymph # (Auto) (1.18-3.74) K/mm3 [place] # (Auto) (0.24-0.36) K/mm3 Eos # (Auto) (0.04-0.36) K/mm3 Baso # (Auto) (0.01-0.08) K/mm3 Manual Slide Review Sodium (136-145) mEq/L Potassium (3.5-5.1) mEq/L Chloride (98-107) mEq/L Carbon Dioxide (21-32) mEq/L Anion Gap (5-15) BUN (7-18) mg/dL Creatinine (0.55-1.02) mg/dL Est Cr Clr Drug Dosing mL/min Estimated GFR (MDRD) (>60) mL/min BUN/Creatinine Ratio (14-18) Glucose (83-115) mg/dL POC Glucose 193 H 236 H (83-110) mg/dL Calcium (8.5-10.1) mg/dL Magnesium (1.8-2.4) mg/dl C-Reactive Protein (<1.0) mg/dL Urine Color Yellow (Yellow) Urine Appearance Clear (Clear) Urine pH 5.5 (5.0-8.0) Ur Specific [place] 1.025 (1.005-1.030) Urine Protein Negative (Negative) Urine Glucose (UA) Negative (Negative) Urine Ketones Negative (Negative) Urine Occult Blood Negative (Negative) Urine Nitrite Negative (Negative) Urine Bilirubin Negative (Negative) Urine Urobilinogen 0.2 (0.2-1.0) Ur Leukocyte Esterase Negative (Negative) Urine RBC 0-5 (0-5) /hpf Urine WBC 0-5 (0-5) /hpf Ur Epithelial Cells 5-10 H (0-5) /hpf Urine Bacteria Few (FEW) /hpf Urine Mucus Few (FEW) /hpf 08/25/17 08/25/17 08/25/17 Range/Units 06:01 06:03 06:03 WBC 7.90 (3.98-10.04) K/mm3 RBC 4.26 (3.98-5.22) M/mm3 Hgb 11.9 (11.2-15.7) gm/L Hct 35.4 (34.1-44.9) % MCV 83.1 (79.4-94.8) fl MCH 27.9 (25.6-32.2) pg MCHC 33.6 (32.2-35.5) g/dl RDW Std Deviation 42.5 (36.4-46.3) fL Plt Count 213 (182-369) K/mm3 MPV 11.0 (9.4-12.3) fl Neut % (Auto) 62.8 (34.0-71.1) % Lymph % (Auto) 27.6 (19.3-51.7) % [place] % (Auto) 5.9 (4.7-12.5) % Eos % (Auto) 2.8 (0.7-5.8) Baso % (Auto) 0.5 (0.1-1.2) % Neut # (Auto) 4.96 (1.56-6.13) K/mm3 Lymph # (Auto) 2.18 (1.18-3.74) K/mm3 [place] # (Auto) 0.47 H (0.24-0.36) K/mm3 Eos # (Auto) 0.22 (0.04-0.36) K/mm3 Baso # (Auto) 0.04 (0.01-0.08) K/mm3 Manual Slide Review Not Reportable Sodium 141 (136-145) mEq/L Potassium 3.6 (3.5-5.1) mEq/L Chloride 104 (98-107) mEq/L Carbon Dioxide 29 (21-32) mEq/L Anion Gap 11.6 (5-15) BUN 25 H (7-18) mg/dL Creatinine 1.1 H (0.55-1.02) mg/dL Est Cr Clr Drug Dosing 33.74 mL/min Estimated GFR (MDRD) 48 (>60) mL/min BUN/Creatinine Ratio 22.7 H (14-18) Glucose 173 H (83-115) mg/dL POC Glucose 186 H (83-110) mg/dL Calcium 8.5 (8.5-10.1) mg/dL Magnesium 1.3 L (1.8-2.4) mg/dl C-Reactive Protein 3.5 H* (<1.0) mg/dL Urine Color (Yellow) Urine Appearance (Clear) Urine pH (5.0-8.0) Ur Specific [place] (1.005-1.030) Urine Protein (Negative) Urine Glucose (UA) (Negative) Urine Ketones (Negative) Urine Occult Blood (Negative) Urine Nitrite (Negative) Urine Bilirubin (Negative) Urine Urobilinogen (0.2-1.0) Ur Leukocyte Esterase (Negative) Urine RBC (0-5) /hpf Urine WBC (0-5) /hpf Ur Epithelial Cells (0-5) /hpf Urine Bacteria (FEW) /hpf Urine Mucus (FEW) /hpf Med Orders - Current: Current Medications Acetaminophen (Tylenol) 650 mg PO Q4H PRN PRN Reason: Pain (Mild 1-3)/fever Hydrocodone Bitart/Acetaminophen ([place] 325-5 Mg) 1 tab PO Q4H PRN PRN Reason: Pain (moderate 4-6) Last Admin: 02/21/17 03:07 Dose: 1 tab Albuterol/Ipratropium (Duoneb 3.0-0.5 Mg/3 Ml) 3 ml NEB Q4H PRN PRN Reason: Shortness Of Breath/wheezing Aspirin (Halfprin) 81 mg PO DAILY [facility] Last Admin: 02/21/17 08:27 Dose: 81 mg Atenolol (Tenormin) 25 mg PO DAILY [facility] Last Admin: 02/21/17 08:27 Dose: 25 mg Bisacodyl (Dulcolax) 5 mg PO DAILY PRN PRN Reason: Constipation Dextrose/Water (Dextrose 50% In Water) 50 ml IVPUSH ONCALL PRN PRN Reason: Hypoglycemia Docusate Sodium (Colace) 100 mg PO BID PRN PRN Reason: Constipation Furosemide (Lasix) 40 mg PO BIDDIURETIC [facility] Last Admin: 02/21/17 06:59 Dose: 40 mg Glipizide (Glucotrol Xl) 20 mg PO DAILY@0700 [facility] Last Admin: 02/21/17 06:58 Dose: 20 mg Hydralazine HCl (Apresoline) 20 mg IVPUSH Q4H PRN PRN Reason: Hypertension Hydromorphone HCl (Dilaudid) 0.25 mg IVPUSH Q4H PRN PRN Reason: Pain (severe 7-10) Promethazine HCl 12.5 mg/ (Sodium Chloride) 50.5 mls @ 100 mls/hr IV Q6H PRN PRN Reason: Nausea/Vomiting Sodium Chloride (Normal Saline) 1,000 mls @ 100 mls/hr IV ASDIRECTED [facility] Last Admin: 02/21/17 03:08 Dose: 100 mls/hr Vancomycin HCl 1 gm/Vancomycin HCl 250 mg/ Sodium Chloride 250 mls @ 166 mls/ hr IV Q24H [facility] Last Admin: 02/21/17 08:28 Dose: 166 mls/hr Insulin Aspart (Novolog) 0 unit SUBCUT QIDACANDBED [facility] PRN Reason: Protocol Last Admin: 02/21/17 06:59 Dose: 1 unit Loperamide HCl (Imodium) 4 mg PO ASDIRECTED PRN PRN Reason: Diarrhea Lorazepam (Ativan) 2 mg IVPUSH Q4H PRN PRN Reason: Seizures Losartan Potassium (Cozaar) 50 mg PO DAILY [facility] Last Admin: 02/21/17 08:28 Dose: 50 mg Magnesium Sulfate (Pharmacy To Dose - Magnesium Replacement) 0 dose .XX ASDIRECTED PRN PRN Reason: RX TO WATCH MAG LEVELS Metformin HCl (Glucophage) 500 mg PO BEDTIME [facility] Last Admin: 02/20/17 21:44 Dose: 500 mg Metformin HCl (Glucophage) 1,000 mg PO DAILY@0800 [facility] Last Admin: 02/21/17 08:27 Dose: 1,000 mg Metoprolol Tartrate (Lopressor) 5 mg IVPUSH Q4H PRN PRN Reason: Tachycardia Ondansetron HCl (Zofran) 4 mg IV Q6H PRN PRN Reason: Nausea/Vomiting Oxybutynin Chloride (Oxybutynin Er) 5 mg PO DAILY [facility] Last Admin: 02/21/17 08:27 Dose: 5 mg Polyethylene Glycol (Miralax) 17 gm PO DAILY PRN PRN Reason: Constipation Potassium Chloride (Pharmacy To Dose - Potassium Replacement) 0 dose .XX ASDIRECTED PRN PRN Reason: RX TO WATCH K LEVELS Rivaroxaban (Xarelto) 10 mg PO DAILY [facility] Last Admin: 02/21/17 08:27 Dose: 10 mg Senna/Docusate Sodium (Senna Plus) 1 tab PO BID PRN PRN Reason: Constipation Sodium Chloride (Saline Flush) 10 ml FLUSH ASDIRECTED PRN PRN Reason: Keep Vein Open Temazepam (Restoril) 7.5 mg PO BEDTIME PRN PRN Reason: Sleep Vancomycin HCl (Pharmacy To Dose - Vancomycin) 0 dose .XX ASDIRECTED PRN PRN Reason: RX TO DOSE VANCOMYCIN Vit A/Vit C/Vit E/Selen/Cu/Zn/Lutei (Icaps Mv) 1 tab PO DAILY [facility] Last Admin: 02/21/17 08:27 Dose: 1 tab Discontinued Medications Lorazepam (Ativan) 1 mg IV ONETIME ONE Stop: 02/20/17 14:46 Last Admin: 02/20/17 16:10 Dose: Not Given Pneumococcal Polyvalent Vaccine (Pneumovax 23) 0.5 ml IM .ONCE ONE Stop: 02/20/17 17:20 Tramadol HCl (Ultram) 50 mg PO ONETIME ONE Stop: 02/20/17 12:27 Last Admin: 02/20/17 12:35 Dose: 50 mg - Exam General: Alert, Oriented, Cooperative, No Acute Distress, Other (Obese) HEENT: Pupils Equal, Pupils Reactive, EOMI, Mucous Membr. Moist/Ong Neck: Supple, Trachea Midline, No JVD, No Thyromegaly, Lymphadenopathy, Other ( short and thick) Lungs: Clear to Auscultation, Normal Respiratory Effort Cardiovascular: Regular Rate, Regular Rhythm GI/Abdominal Exam: Normal Bowel Sounds, Soft, Non-Tender, No Organomegaly, No Distention, No Abnormal Bruit, No Mass, Other (Obese) (Female) Exam: Deferred Back Exam: Normal Inspection, Decreased Range of Motion Extremities: Normal Range of Motion, Normal Capillary Refill, Redness. No: Non- Tender, Pedal Edema Peripheral Pulses: 1+: Dorsalis Pedis (L), Dorsalis Pedis (R) Skin: Warm, Dry, Intact, Other (hyperpigmentation on right lower extremity) Wound/Incisions: No Drainage, Erythema Neurological: No New Focal Deficit Psy/Mental Status: Alert, Normal Affect, Normal Mood - Problem List Review Problem List Initiated/Reviewed/Updated: Yes - My Orders Last 24 Hours: My Active Orders 02/20/17 14:31 Polyethylene Glycol 3350 [MiraLAX] 17 gm PO DAILY PRN 02/20/17 14:32 RT Aerosol Therapy [RC] ASDIRECTED Consult to Case Management [CONS] Routine Consult to Diabetic Nurse Specialist [CONS] Routine Consult to Movie Stunt Performer [CONS] Routine Consult to Extension Educator [CONS] Routine Consult to Spiritual Care [CONS] Routine OT Evaluation and Treatment [CONS] Routine PT Evaluation and Treatment [CONS] Routine Blood Culture x2 Reflex Set [OM.PC] Stat 02/20/17 14:34 Loperamide [Imodium] 4 mg PO ASDIRECTED PRN 02/20/17 14:35 LORazepam [Ativan] 2 mg IVPUSH Q4H PRN Metoprolol Tartrate [Lopressor] 5 mg IVPUSH Q4H PRN hydrALAZINE [Apresoline] 20 mg IVPUSH Q4H PRN 02/20/17 14:45 Magnesium Rep Pharmacy to Dose [Pharmacy to Dose - Magnesium Replacement] 0 dose .XX ASDIRECTED PRN Potassium Rep Pharmacy to Dose [Pharmacy to Dose - Potassium Replacement] 0 dose .XX ASDIRECTED PRN 02/20/17 14:55 CULTURE BLOOD [BC] Stat 02/20/17 15:10 CULTURE BLOOD [BC] Stat 02/20/17 15:12 Vancomycin Pharmacy to Dose [Pharmacy to Dose - Vancomycin] 0 dose .XX ASDIRECTED PRN 02/20/17 16:00 Furosemide [Lasix] 40 mg PO BIDDIURETIC 02/20/17 16:04 Blood Glucose Check, Bedside [RC] QIDACANDBED Dextrose 50% in Water 50 ml IVPUSH ONCALL PRN 02/20/17 16:15 Insulin Aspart [NovoLOG] See Protocol SUBCUT QIDACANDBED 02/20/17 21:00 Temazepam [Restoril] 7.5 mg PO BEDTIME PRN metFORMIN [Glucophage] 500 mg PO BEDTIME 02/21/17 07:00 glipiZIDE [Glucotrol XL] 20 mg PO DAILY@69902/21/17 08:00 Vancomycin 1 gm Vancomycin 250 mg Sodium Chloride 0.9% [Normal Saline] 250 ml IV Q24H metFORMIN [Glucophage] 1,000 mg PO DAILY@79902/21/17 09:00 Aspirin [Halfprin] 81 mg PO DAILY Atenolol [Tenormin] 25 mg PO DAILY Losartan [Cozaar] 50 mg PO DAILY Multivitamins/Min/FA/Lut/Zeax [ICaps MV] 1 tab PO DAILY Oxybutynin [Oxybutynin ER] 5 mg PO DAILY Rivaroxaban [Xarelto] 10 mg PO DAILY 02/22/17 05:11 BASIC METABOLIC PANEL,BMP [CHEM] AM C-REACTIVE PROTEIN [CHEM] AM CBC WITH AUTO DIFF [HEME] AM MAGNESIUM [CHEM] AM 02/23/17 05:11 BASIC METABOLIC PANEL,BMP [CHEM] AM C-REACTIVE PROTEIN [CHEM] AM CBC WITH AUTO DIFF [HEME] AM MAGNESIUM [CHEM] AM 02/24/17 05:11 BASIC METABOLIC PANEL,BMP [CHEM] AM C-REACTIVE PROTEIN [CHEM] AM CBC WITH AUTO DIFF [HEME] AM MAGNESIUM [CHEM] AM 02/24/17 07:30 VANCOMYCIN TROUGH [CHEM] Timed - Plan Plan:: ssessment/Plan: Acute: Left Lower Extremity Statis Dermatitis - Risk factors: PAD and DM - CBC remains normal and CRP is still minimally elevated at 3.5 - Patients has signs of PAD - Discontinue IV Vancomycin - Arterial Study with Padnet - Will refer her to see a vascular surgeon Hyperglycemia with DM2 - Her last 2 A1C were in the 6s - Her A1C now is 10.50 - Continue oral regimen: Metformin and Glucotrol - Accu-check QIDandHS - ISS change to high dose - Increased Metformin HS dose to 1000 mg po from 500 mg - Dietary and Diabetic consult Obesity with BMI of 45.9 - Dietary consult for weight management - Advised LSM Chronic: Impaired Vision PE/DVT on Xarelto for anticoags GERD Urinary Incontinence DM2 Obesity Plan: She is clinically stable Routine AM Labs Continue PT/OT DVT PPx: Xarelto SW/CM for D/c planing Code status: 1 Possible d/c this weekend
[2017-02-21] MEDS ORDERED: Magnesium Sulfate/Water 2 GM in Premix Bag 1 BAG IV ONE (19:30)
--- NOTE | 2017-02-22 01:35 | PCM.PN ---
- General Info Date of Service: 02/22/17 Admission Dx/Problem (Free Text): Cellulitis Failed Outpatient Treatment Subjective Update: Follow Up Functional Status: Reports: Pain Controlled, Tolerating Diet, Ambulating. Denies: Urinating, New Symptoms - Review of Systems General: Denies: Fever, Weakness, Fatigue, Malaise, Chills HEENT: Reports: No Symptoms Pulmonary: Denies: Shortness of Breath Cardiovascular: Denies: Chest Pain Gastrointestinal: Denies: Abdominal Pain, Nausea, Vomiting Genitourinary: Reports: No Symptoms Musculoskeletal: Reports: No Symptoms Skin: Denies: Cyanosis Neurological: Denies: Confusion, Dizziness, Difficulty Walking, Weakness, Gait Disturbance Psychiatric: Denies: Depression, Anxiety, Agitation, Hallucinations Systems Review Comment:: No significant overnight or acute issues. She slept well. She has no new complaints. She remains afebrile w/o leukocytosis. Her K is slight low this am at 3.4. her sugar is still not controlled. - Patient Data Vitals - Most Recent: Last Vital Signs Temp 36.5 C 02/21/17 21:13 Pulse 58 L 02/21/17 21:13 Resp 14 02/21/17 21:13 BP 155/51 H 02/21/17 21:13 Pulse Ox 97 02/21/17 21:13 Weight - Most Recent: 117.48 kg I&O - Last 24 Hours: Intake & Output 02/21/17 02/21/17 02/22/17 14:59 22:59 06:59 Intake Total 360 2326 Output Total 1450 Balance 360 876 Lab Results Last 24 Hours: Laboratory Results - last 24 hr 02/21/17 02/21/17 02/21/17 Range/Units 06:01 06:03 06:03 WBC 7.90 (3.98-10.04) K/mm3 RBC 4.26 (3.98-5.22) M/mm3 Hgb 11.9 (11.2-15.7) gm/L Hct 35.4 (34.1-44.9) % MCV 83.1 (79.4-94.8) fl MCH 27.9 (25.6-32.2) pg MCHC 33.6 (32.2-35.5) g/dl RDW Std Deviation 42.5 (36.4-46.3) fL Plt Count 213 (182-369) K/mm3 MPV 11.0 (9.4-12.3) fl Neut % (Auto) 62.8 (34.0-71.1) % Lymph % (Auto) 27.6 (19.3-51.7) % [place] % (Auto) 5.9 (4.7-12.5) % Eos % (Auto) 2.8 (0.7-5.8) Baso % (Auto) 0.5 (0.1-1.2) % Neut # (Auto) 4.96 (1.56-6.13) K/mm3 Lymph # (Auto) 2.18 (1.18-3.74) K/mm3 [place] # (Auto) 0.47 H (0.24-0.36) K/mm3 Eos # (Auto) 0.22 (0.04-0.36) K/mm3 Baso # (Auto) 0.04 (0.01-0.08) K/mm3 Manual Slide Review Not Reportable Sodium 141 (136-145) mEq/L Potassium 3.6 (3.5-5.1) mEq/L Chloride 104 (98-107) mEq/L Carbon Dioxide 29 (21-32) mEq/L Anion Gap 11.6 (5-15) BUN 25 H (7-18) mg/dL Creatinine 1.1 H (0.55-1.02) mg/dL Est Cr Clr Drug Dosing 33.74 mL/min Estimated GFR (MDRD) 48 (>60) mL/min BUN/Creatinine Ratio 22.7 H (14-18) Glucose 173 H (83-115) mg/dL POC Glucose 186 H (83-110) mg/dL Calcium 8.5 (8.5-10.1) mg/dL Magnesium 1.3 L (1.8-2.4) mg/dl C-Reactive Protein 3.5 H* (<1.0) mg/dL 02/21/17 02/21/17 02/21/17 Range/Units 12:16 16:59 21:08 WBC (3.98-10.04) K/mm3 RBC (3.98-5.22) M/mm3 Hgb (11.2-15.7) gm/L Hct (34.1-44.9) % MCV (79.4-94.8) fl MCH (25.6-32.2) pg MCHC (32.2-35.5) g/dl RDW Std Deviation (36.4-46.3) fL Plt Count (182-369) K/mm3 MPV (9.4-12.3) fl Neut % (Auto) (34.0-71.1) % Lymph % (Auto) (19.3-51.7) % [place] % (Auto) (4.7-12.5) % Eos % (Auto) (0.7-5.8) Baso % (Auto) (0.1-1.2) % Neut # (Auto) (1.56-6.13) K/mm3 Lymph # (Auto) (1.18-3.74) K/mm3 [place] # (Auto) (0.24-0.36) K/mm3 Eos # (Auto) (0.04-0.36) K/mm3 Baso # (Auto) (0.01-0.08) K/mm3 Manual Slide Review Sodium (136-145) mEq/L Potassium (3.5-5.1) mEq/L Chloride (98-107) mEq/L Carbon Dioxide (21-32) mEq/L Anion Gap (5-15) BUN (7-18) mg/dL Creatinine (0.55-1.02) mg/dL Est Cr Clr Drug Dosing mL/min Estimated GFR (MDRD) (>60) mL/min BUN/Creatinine Ratio (14-18) Glucose (83-115) mg/dL POC Glucose 185 H 182 H 240 H (83-110) mg/dL Calcium (8.5-10.1) mg/dL Magnesium (1.8-2.4) mg/dl C-Reactive Protein (<1.0) mg/dL [place] Results Last 24 Hours: Microbiology 02/20/17 15:10 Aerobic Blood Culture - Preliminary Blood - Venous - Lab Draw NO GROWTH AFTER 1 DAY Anaerobic Blood Culture - Preliminary NO GROWTH AFTER 1 DAY 02/20/17 14:55 Aerobic Blood Culture - Preliminary Blood - Venous NO GROWTH AFTER 1 DAY Anaerobic Blood Culture - Preliminary NO GROWTH AFTER 1 DAY Med Orders - Current: Current Medications Acetaminophen (Tylenol) 650 mg PO Q4H PRN PRN Reason: Pain (Mild 1-3)/fever Hydrocodone Bitart/Acetaminophen ([place] 325-5 Mg) 1 tab PO Q4H PRN PRN Reason: Pain (moderate 4-6) Last Admin: 02/21/17 21:09 Dose: 1 tab Albuterol/Ipratropium (Duoneb 3.0-0.5 Mg/3 Ml) 3 ml NEB Q4H PRN PRN Reason: Shortness Of Breath/wheezing Aspirin (Halfprin) 81 mg PO DAILY [facility] Last Admin: 02/21/17 08:27 Dose: 81 mg Atenolol (Tenormin) 25 mg PO DAILY [facility] Last Admin: 02/21/17 08:27 Dose: 25 mg Bisacodyl (Dulcolax) 5 mg PO DAILY PRN PRN Reason: Constipation Dextrose/Water (Dextrose 50% In Water) 50 ml IVPUSH ONCALL PRN PRN Reason: Hypoglycemia Docusate Sodium (Colace) 100 mg PO BID PRN PRN Reason: Constipation Furosemide (Lasix) 40 mg PO BIDDIURETIC [facility] Last Admin: 02/21/17 13:13 Dose: 40 mg Glipizide (Glucotrol Xl) 20 mg PO DAILY@0700 [facility] Last Admin: 02/21/17 06:58 Dose: 20 mg Hydralazine HCl (Apresoline) 20 mg IVPUSH Q4H PRN PRN Reason: Hypertension Hydromorphone HCl (Dilaudid) 0.25 mg IVPUSH Q4H PRN PRN Reason: Pain (severe 7-10) Promethazine HCl 12.5 mg/ (Sodium Chloride) 50.5 mls @ 100 mls/hr IV Q6H PRN PRN Reason: Nausea/Vomiting Insulin Aspart (Novolog) 0 unit SUBCUT QIDACANDBED [facility] PRN Reason: Protocol Last Admin: 02/21/17 21:09 Dose: 2 unit Loperamide HCl (Imodium) 4 mg PO ASDIRECTED PRN PRN Reason: Diarrhea Lorazepam (Ativan) 2 mg IVPUSH Q4H PRN PRN Reason: Seizures Losartan Potassium (Cozaar) 50 mg PO DAILY [facility] Last Admin: 02/21/17 08:28 Dose: 50 mg Magnesium Sulfate (Pharmacy To Dose - Magnesium Replacement) 0 dose .XX ASDIRECTED PRN PRN Reason: RX TO WATCH MAG LEVELS Metformin HCl (Glucophage) 1,000 mg PO DAILY@0800 [facility] Last Admin: 02/21/17 08:27 Dose: 1,000 mg Metformin HCl (Glucophage) 1,000 mg PO BEDTIME [facility] Metoprolol Tartrate (Lopressor) 5 mg IVPUSH Q4H PRN PRN Reason: Tachycardia Ondansetron HCl (Zofran) 4 mg IV Q6H PRN PRN Reason: Nausea/Vomiting Oxybutynin Chloride (Oxybutynin Er) 5 mg PO DAILY [facility] Last Admin: 02/21/17 08:27 Dose: 5 mg Polyethylene Glycol (Miralax) 17 gm PO DAILY PRN PRN Reason: Constipation Potassium Chloride (Pharmacy To Dose - Potassium Replacement) 0 dose .XX ASDIRECTED PRN PRN Reason: RX TO WATCH K LEVELS Rivaroxaban (Xarelto) 10 mg PO DAILY [facility] Last Admin: 02/21/17 08:27 Dose: 10 mg Senna/Docusate Sodium (Senna Plus) 1 tab PO BID PRN PRN Reason: Constipation Sodium Chloride (Saline Flush) 10 ml FLUSH ASDIRECTED PRN PRN Reason: Keep Vein Open Temazepam (Restoril) 7.5 mg PO BEDTIME PRN PRN Reason: Sleep Vit A/Vit C/Vit E/Selen/Cu/Zn/Lutei (Icaps Mv) 1 tab PO DAILY [facility] Last Admin: 02/21/17 08:27 Dose: 1 tab Discontinued Medications Sodium Chloride (Normal Saline) 1,000 mls @ 100 mls/hr IV ASDIRECTED [facility] Last Admin: 02/21/17 23:00 Dose: 100 mls/hr Vancomycin HCl 1 gm/Vancomycin HCl 250 mg/ Sodium Chloride 250 mls @ 166 mls/ hr IV Q24H [facility] Last Admin: 02/21/17 08:28 Dose: 166 mls/hr Magnesium Sulfate 2 gm/ Premix 50 mls @ 50 mls/hr IV ONETIME ONE Stop: 02/21/17 20:29 Last Admin: 02/21/17 19:32 Dose: 50 mls/hr Lorazepam (Ativan) 1 mg IV ONETIME ONE Stop: 02/20/17 14:46 Last Admin: 02/20/17 16:10 Dose: Not Given Metformin HCl (Glucophage) 500 mg PO BEDTIME [facility] Last Admin: 02/21/17 21:05 Dose: 500 mg Pneumococcal Polyvalent Vaccine (Pneumovax 23) 0.5 ml IM .ONCE ONE Stop: 02/20/17 17:20 Tramadol HCl (Ultram) 50 mg PO ONETIME ONE Stop: 02/20/17 12:27 Last Admin: 02/20/17 12:35 Dose: 50 mg Vancomycin HCl (Pharmacy To Dose - Vancomycin) 0 dose .XX ASDIRECTED PRN PRN Reason: RX TO DOSE VANCOMYCIN - Exam General: Alert, Oriented, Cooperative, No Acute Distress, Other (Obese) HEENT: Pupils Equal, Pupils Reactive, EOMI, Mucous Membr. Moist/[place] Neck: Supple, Trachea Midline, No JVD, No Thyromegaly, Other (short and thick) Lungs: Clear to Auscultation, Normal Respiratory Effort Cardiovascular: Regular Rate, Regular Rhythm GI/Abdominal Exam: Normal Bowel Sounds, Soft, Non-Tender, No Organomegaly, No Distention, No Abnormal Bruit, No Mass, Other (Obese) (Female) Exam: Deferred Back Exam: Normal Inspection, Decreased Range of Motion Extremities: Normal Inspection, Normal Range of Motion, No Pedal Edema, Normal Capillary Refill, Pedal Edema, Leg Pain (left lower leg on palpation), Increased Warmth, Redness Peripheral Pulses: 1+: Dorsalis Pedis (L), Dorsalis Pedis (R) Skin: Warm, Dry, Intact Neurological: No New Focal Deficit. No: Normal Gait Psy/Mental Status: Alert, Normal Affect, Normal Mood - Problem List Review Problem List Initiated/Reviewed/Updated: Yes - My Orders Last 24 Hours: My Active Orders 02/21/17 07:00 glipiZIDE [Glucotrol XL] 20 mg PO DAILY@69902/21/17 08:00 metFORMIN [Glucophage] 1,000 mg PO DAILY@79902/21/17 09:00 Aspirin [Halfprin] 81 mg PO DAILY Atenolol [Tenormin] 25 mg PO DAILY Losartan [Cozaar] 50 mg PO DAILY Multivitamins/Min/FA/Lut/Zeax [ICaps MV] 1 tab PO DAILY Oxybutynin [Oxybutynin ER] 5 mg PO DAILY Rivaroxaban [Xarelto] 10 mg PO DAILY 02/22/17 01:24 metFORMIN [Glucophage] 1,000 mg PO BEDTIME 02/22/17 05:11 BASIC METABOLIC PANEL,BMP [CHEM] AM C-REACTIVE PROTEIN [CHEM] AM CBC WITH AUTO DIFF [HEME] AM MAGNESIUM [CHEM] AM 02/23/17 05:11 BASIC METABOLIC PANEL,BMP [CHEM] AM C-REACTIVE PROTEIN [CHEM] AM CBC WITH AUTO DIFF [HEME] AM MAGNESIUM [CHEM] AM 02/24/17 05:11 BASIC METABOLIC PANEL,BMP [CHEM] AM C-REACTIVE PROTEIN [CHEM] AM CBC WITH AUTO DIFF [HEME] AM MAGNESIUM [CHEM] AM - Plan Plan:: ssessment/Plan: Acute: Left Lower Statis Dermatitis - Risk factors: PAD and DM - CBC remains normal and CRP is still minimally elevated at 3.5 - Patients has signs of PAD - Discontinue IV Vancomycin - Arterial Study with [employer]-completed awaiting final report, we may not even get it b/c of the weekend - Will refer her to see a vascular surgeon Hyperglycemia with DM2 - Her last 2 A1C were in the 6s - Her A1C now is 10.50 - Continue oral regimen: Metformin and Glucotrol - Accu-check QIDandHS - ISS change to high dose - Continue Metformin HS dose to 1000 mg po from 500 mg - Dietary and Diabetic consult Obesity with BMI of 45.9 - Dietary consult for weight management - Advised LSM Chronic: Impaired Vision PE/DVT on Xarelto (Her home dose was entered incorrectly, had to fix it this am) GERD Urinary Incontinence DM2 Obesity Plan: She remains clinically stable Routine AM Labs Continue PT/OT DVT PPx: xarelto SW/CM for D/c planing Code status: 1 Possible d/c in am
[2017-02-22] MEDS: Furosemide 40 MG Tab PO SCH ×2 (06:20→15:17)
[2017-02-22] MEDS: glipiZIDE 5 MG Tab.ER PO SCH (06:20)
[2017-02-22] MEDS: Insulin Aspart 100 Units/ML 3 ML Pen SUBCUT SCH ×4 (07:49→21:09)
[2017-02-22] MEDS: Losartan 25 MG Tab PO SCH (08:00)
[2017-02-22] MEDS: Aspirin 81 MG Tab.EC PO SCH (08:00)
[2017-02-22] MEDS: Oxybutynin 5 MG Tab.ER PO SCH (08:00)
[2017-02-22] MEDS: Rivaroxaban 10 MG Tab PO SCH ×2 (08:00→21:07)
[2017-02-22] MEDS: Multivitamins with Minerals/Folic Acid/Lutein/Zeaxanth Tab PO SCH (08:00)
[2017-02-22] MEDS: Atenolol 25 MG Tab PO SCH (08:00)
[2017-02-22] MEDS: metFORMIN 500 MG Tab PO SCH (08:01)
[2017-02-22] MEDS ORDERED: Rivaroxaban 10 MG Tab PO ONE (09:16)
[2017-02-22] MEDS ORDERED: Magnesium Sulfate/Water 2 GM in Premix Bag 1 BAG IV ONE (12:00)
[2017-02-22] MEDS: Potassium Chloride 20 MEQ Tab.ER PO SCH ×2 (12:44→15:17)
[2017-02-22] MEDS: Acetaminophen/HYDROcodone 325-5 MG Tab PO PRN ×2 (12:44→21:08)
[2017-02-22] MEDS ORDERED: metFORMIN 500 MG Tab PO SCH (21:00)
[2017-02-23] MEDS: glipiZIDE 5 MG Tab.ER PO SCH (06:39)
[2017-02-23] MEDS: Furosemide 40 MG Tab PO SCH (06:39)
[2017-02-23] MEDS: Insulin Aspart 100 Units/ML 3 ML Pen SUBCUT SCH ×2 (08:16→11:52)
[2017-02-23] MEDS: Losartan 25 MG Tab PO SCH (08:30)
[2017-02-23] MEDS: Oxybutynin 5 MG Tab.ER PO SCH (08:31)
[2017-02-23] MEDS: Multivitamins with Minerals/Folic Acid/Lutein/Zeaxanth Tab PO SCH (08:31)
[2017-02-23] MEDS: Atenolol 25 MG Tab PO SCH (08:31)
[2017-02-23] MEDS: Aspirin 81 MG Tab.EC PO SCH (08:31)
[2017-02-23] MEDS: Rivaroxaban 10 MG Tab PO SCH (08:32)
[2017-02-23 08:34] VITALS: BP 143/79
[2017-02-23] MEDS: metFORMIN 500 MG Tab PO SCH (08:34)
--- NOTE | 2017-02-23 10:38 | PCM.DCSUM1 ---
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 She was admitted for left lower extremity diabetic cellulitis. - Discharge Data Discharge Date: 02/23/17 Discharge Disposition: Home, Self-Care 01 Condition: Good - Discharge Diagnosis/Problem(s) (1) Stasis dermatitis SNOMED Code(s): 63254774 ICD Code: I87.2 - VENOUS INSUFFICIENCY (CHRONIC) (PERIPHERAL) Status: Acute Qualifiers: Laterality: left Qualified Code(s): I87.2 - Venous insufficiency (chronic) (peripheral) (2) Diabetes SNOMED Code(s): 37561164 ICD Code: E11.9 - TYPE 2 DIABETES MELLITUS WITHOUT COMPLICATIONS Status: Chronic Qualifiers: Diabetes mellitus type: type 2 Diabetes mellitus complication status: with circulatory complication Diabetes mellitus termite treater insulin use: without termite treater use (3) Pulmonary embolism SNOMED Code(s): 87123746, 32262816 ICD Code: I26.99 - OTHER PULMONARY EMBOLISM WITHOUT ACUTE COR PULMONALE Status: Chronic Qualifiers: Pulmonary embolism type: saddle Chronicity: chronic (4) DVT (deep venous thrombosis) SNOMED Code(s): 842039781 ICD Code: I82.409 - ACUTE EMBOLISM AND THOMBOS UNSP DEEP VN UNSP LOWER EXTREMITY Status: Chronic Qualifiers: DVT location: lower extremity Affected thrombotic vein of extremity: unspecified vein of extremity Chronicity: acute Laterality: right Qualified Code(s): I82.401 - Acute embolism and thrombosis of unspecified deep veins of right lower extremity - Patient Summary/Data Operative Procedure(s) Performed: None Complications: None Consults: Consultations 02/20/17 14:32 Consult to Case Management [CONS] Routine Consult to Diabetic Nurse Specialist [CONS] Routine Consult to Escrow Secretary [CONS] Routine Consult to Residential Service Technician [CONS] Routine Consult to Spiritual Care [CONS] Routine OT Evaluation and Treatment [CONS] Routine PT Evaluation and Treatment [CONS] Routine Recommended Follow-up Testing/Procedures: None Hospital Course: She was primarily admitted for diabetic cellulitis. However after careful examination and reviews of her diagnostic data & labs, we felt she actually had stasis dermatitis. Patient had signs of chronic venous insufficiency on both bilateral lower extremity. She did however receive a one-time dose of vancomycin but then stopped immediately after she had no leukocytosis and or fever. She did however had an arterial studies. Unfortunately, the report was still pending. With supportive care and good glucose control, her legs improved. Patient was educated about her chronic medical illness and we stressed the importance of medical and dietary compliance. She was advised to continue with ambulation to improve circulation of her lower extremities. On the day of discharge, she was counseled to practice lifestyle modifications to include eating properly, regular exercise and weight loss. She was advised to keep both her appointments with the elevator repairer helper and vascular surgeon. She is to call or follow-up with her primary care physician for any question or concerns right after discharge. The patient expressed understanding and in agreement plans as discussed above. All questions were answered. - Patient Instructions Diet: Heart Healthy Diet, Usual Diet as Tolerated, Diabetic Diet, Weight Loss Diet Activity: As Tolerated Driving: Do Not Drive Showering/Bathing: May Shower Notify Provider of: Fever, Increased Pain, Swelling and Redness, Drainage, Nausea and/or Vomiting Other/Special Instructions: - Please take all medications as directed. - We recommend you practice life style modifications: eat properly, exercise reguarly and lose weight. - Keep all follow up appopintments as scheduled. - If you choose to continue your Amoxicillin, please take it with probiotic (see Rx). - Call or follow up with your doctor if you have any questions or concerns right after discharge - Discharge Plan Prescriptions/Med Rec: Lactobac Cmb #3/Fos/Pantethine [Probiotic & Acidophilus] 1 each PO TID #15 capsule metFORMIN HCl [Metformin HCl] 1,000 mg PO BID #30 tablet Home Medications: Home Meds Aspirin [Halfprin] 81 mg PO DAILY 03/15/14 [History] Atenolol [Tenormin] 25 mg PO DAILY 03/15/14 [History] Furosemide 40 mg PO BID 03/15/14 [History] Losartan [Cozaar] 50 mg PO DAILY 03/15/14 [History] Lutein Extract/Zeaxanthin Ext [Lutein 15 MG Softgel] 1 cap PO DAILY 03/15/14 [ History] Oxybutynin Chloride [Ditropan Xl] 5 mg PO DAILY 02/17/17 [History] glipiZIDE [Glipizide ER] 20 mg PO DAILY 02/17/17 [History] Loperamide [Imodium] 4 mg PO ASDIRECTED PRN 02/20/17 [History] Lactobac Cmb #3/Fos/Pantethine [Probiotic & Acidophilus] 1 each PO TID #15 capsule 02/23/17 [Rx] Rivaroxaban [Xarelto] 15 mg PO ASDIRECTED #0 02/23/17 [Rx] metFORMIN HCl [Metformin HCl] 1,000 mg PO BID #30 tablet 02/23/17 [Rx] Patient Handouts: Diabetes and Foot Care, Diabetes and Sick Day Management, Cellulitis, Adult, [id number], Basic Carbohydrate Counting for Diabetes Mellitus, How to Avoid Diabetes Problems, Diabetes and Exercise Referrals: Bev Del Cid MD [Primary Care Provider] - Vinnie Houston DO [Ordering Only Provider] - 03/19/17 11:15 am (Appointment is in Central Standard Time.) Izaiah Rodrigues MD [Ordering Only Provider] - 03/19/17 2:45 pm (Peripheral vascular disease evaluation. Appointment is in Central Standard Time.) - Discharge Summary/Plan Comment DC Time >30 min.: Yes (45 mins) Discharge Summary/Plan Comment: Discharge to Home - General Info Date of Service: 02/23/17 Admission Dx/Problem (Free Text: Cellulitis Failed Outpatient Treatment Subjective Update: Follow Up Functional Status: Reports: Pain Controlled, Tolerating Diet, Ambulating, Urinating - Review of Systems General: Denies: Fever, Weakness, Fatigue, Malaise, Chills HEENT: Reports: No Symptoms Pulmonary: Denies: Shortness of Breath Cardiovascular: Denies: Chest Pain Gastrointestinal: Denies: Abdominal Pain, Nausea, Vomiting Genitourinary: Reports: No Symptoms Musculoskeletal: Reports: No Symptoms Skin: Denies: Cyanosis, Jaundice, Pruritis, Rash Neurological: Denies: Dizziness, Difficulty Walking, Weakness, Gait Disturbance Psychiatric: Denies: Depression, Anxiety, Agitation, Cravings, Hallucinations Systems Review Comment: No overnight or acute issues. She doing relatively well. Her leg looks much better. She has no new complaints. - Patient Data Vitals - Most Recent: Last Vital Signs Temp 36.4 C 02/23/17 03:55 Pulse 70 02/23/17 08:31 Resp 16 02/23/17 03:55 BP 143/79 H 02/23/17 08:31 Pulse Ox 98 02/23/17 03:55 Weight - Most Recent: 118.841 kg I&O - Last 24 hours: Intake & Output 02/22/17 02/23/17 02/23/17 22:59 06:59 14:59 Intake Total 1290 100 Output Total 1500 800 Balance -210 -700 Lab Results - Last 24 hrs: Laboratory Results - last 24 hr 02/22/17 02/22/17 02/22/17 Range/Units 10:44 17:13 21:05 WBC (3.98-10.04) K/mm3 RBC (3.98-5.22) M/mm3 Hgb (11.2-15.7) gm/L Hct (34.1-44.9) % MCV (79.4-94.8) fl MCH (25.6-32.2) pg MCHC (32.2-35.5) g/dl RDW Std Deviation (36.4-46.3) fL Plt Count (182-369) K/mm3 MPV (9.4-12.3) fl Neut % (Auto) (34.0-71.1) % Lymph % (Auto) (19.3-51.7) % Anderson % (Auto) (4.7-12.5) % Eos % (Auto) (0.7-5.8) Baso % (Auto) (0.1-1.2) % Neut # (Auto) (1.56-6.13) K/mm3 Lymph # (Auto) (1.18-3.74) K/mm3 Anderson # (Auto) (0.24-0.36) K/mm3 Eos # (Auto) (0.04-0.36) K/mm3 Baso # (Auto) (0.01-0.08) K/mm3 Sodium (136-145) mEq/L Potassium (3.5-5.1) mEq/L Chloride (98-107) mEq/L Carbon Dioxide (21-32) mEq/L Anion Gap (5-15) BUN (7-18) mg/dL Creatinine (0.55-1.02) mg/dL Est Cr Clr Drug Dosing mL/min Estimated GFR (MDRD) (>60) mL/min BUN/Creatinine Ratio (14-18) Glucose (83-115) mg/dL POC Glucose 196 H 133 H 288 H (83-110) mg/dL Calcium (8.5-10.1) mg/dL Magnesium (1.8-2.4) mg/dl C-Reactive Protein (<1.0) mg/dL 02/23/17 02/23/17 02/23/17 Range/Units 06:36 06:36 06:38 WBC 6.57 (3.98-10.04) K/mm3 RBC 4.33 (3.98-5.22) M/mm3 Hgb 12.0 (11.2-15.7) gm/L Hct 36.1 (34.1-44.9) % MCV 83.4 (79.4-94.8) fl MCH 27.7 (25.6-32.2) pg MCHC 33.2 (32.2-35.5) g/dl RDW Std Deviation 43.9 (36.4-46.3) fL Plt Count 233 (182-369) K/mm3 MPV 11.0 (9.4-12.3) fl Neut % (Auto) 65.2 (34.0-71.1) % Lymph % (Auto) 22.8 (19.3-51.7) % Anderson % (Auto) 7.6 (4.7-12.5) % Eos % (Auto) 3.3 (0.7-5.8) Baso % (Auto) 0.8 (0.1-1.2) % Neut # (Auto) 4.28 (1.56-6.13) K/mm3 Lymph # (Auto) 1.50 (1.18-3.74) K/mm3 Anderson # (Auto) 0.50 H (0.24-0.36) K/mm3 Eos # (Auto) 0.22 (0.04-0.36) K/mm3 Baso # (Auto) 0.05 (0.01-0.08) K/mm3 Sodium 141 (136-145) mEq/L Potassium 4.1 (3.5-5.1) mEq/L Chloride 106 (98-107) mEq/L Carbon Dioxide 27 (21-32) mEq/L Anion Gap 12.1 (5-15) BUN 28 H (7-18) mg/dL Creatinine 1.1 H (0.55-1.02) mg/dL Est Cr Clr Drug Dosing 33.74 mL/min Estimated GFR (MDRD) 48 (>60) mL/min BUN/Creatinine Ratio 25.5 H (14-18) Glucose 181 H (83-115) mg/dL POC Glucose 173 H (83-110) mg/dL Calcium 8.5 (8.5-10.1) mg/dL Magnesium 2.0 (1.8-2.4) mg/dl C-Reactive Protein 3.3 H* (<1.0) mg/dL DEBBI Results - Last 24 hrs: Microbiology 02/20/17 15:10 Aerobic Blood Culture - Preliminary Blood - Venous - Lab Draw NO GROWTH AFTER 2 DAYS Anaerobic Blood Culture - Preliminary NO GROWTH AFTER 2 DAYS 02/20/17 14:55 Aerobic Blood Culture - Preliminary Blood - Venous NO GROWTH AFTER 2 DAYS Anaerobic Blood Culture - Preliminary NO GROWTH AFTER 2 DAYS Med Orders - Current: Current Medications Acetaminophen (Tylenol) 650 mg PO Q4H PRN PRN Reason: Pain (Mild 1-3)/fever Hydrocodone Bitart/Acetaminophen (Tunica 325-5 Mg) 1 tab PO Q4H PRN PRN Reason: Pain (moderate 4-6) Last Admin: 02/22/17 21:08 Dose: 1 tab Albuterol/Ipratropium (Duoneb 3.0-0.5 Mg/3 Ml) 3 ml NEB Q4H PRN PRN Reason: Shortness Of Breath/wheezing Aspirin (Halfprin) 81 mg PO DAILY [facility] Last Admin: 02/23/17 08:31 Dose: 81 mg Atenolol (Tenormin) 25 mg PO DAILY [facility] Last Admin: 02/23/17 08:31 Dose: 25 mg Bisacodyl (Dulcolax) 5 mg PO DAILY PRN PRN Reason: Constipation Dextrose/Water (Dextrose 50% In Water) 50 ml IVPUSH ONCALL PRN PRN Reason: Hypoglycemia Docusate Sodium (Colace) 100 mg PO BID PRN PRN Reason: Constipation Furosemide (Lasix) 40 mg PO BIDDIURETIC [facility] Last Admin: 02/23/17 06:39 Dose: 40 mg Glipizide (Glucotrol Xl) 20 mg PO DAILY@0700 [facility] Last Admin: 02/23/17 06:39 Dose: 20 mg Hydralazine HCl (Apresoline) 20 mg IVPUSH Q4H PRN PRN Reason: Hypertension Last Admin: 02/22/17 21:20 Dose: 20 mg Hydromorphone HCl (Dilaudid) 0.25 mg IVPUSH Q4H PRN PRN Reason: Pain (severe 7-10) Promethazine HCl 12.5 mg/ (Sodium Chloride) 50.5 mls @ 100 mls/hr IV Q6H PRN PRN Reason: Nausea/Vomiting Insulin Aspart (Novolog) 0 unit SUBCUT QIDACANDBED [facility] PRN Reason: Protocol Last Admin: 02/23/17 08:16 Dose: 3 unit Loperamide HCl (Imodium) 4 mg PO ASDIRECTED PRN PRN Reason: Diarrhea Lorazepam (Ativan) 2 mg IVPUSH Q4H PRN PRN Reason: Seizures Losartan Potassium (Cozaar) 50 mg PO DAILY [facility] Last Admin: 02/23/17 08:30 Dose: 50 mg Magnesium Sulfate (Pharmacy To Dose - Magnesium Replacement) 0 dose .XX ASDIRECTED PRN PRN Reason: RX TO WATCH MAG LEVELS Metformin HCl (Glucophage) 1,000 mg PO DAILY@0800 [facility] Last Admin: 02/23/17 08:34 Dose: 1,000 mg Metformin HCl (Glucophage) 1,000 mg PO BEDTIME [facility] Last Admin: 02/22/17 21:07 Dose: 1,000 mg Metoprolol Tartrate (Lopressor) 5 mg IVPUSH Q4H PRN PRN Reason: Tachycardia Ondansetron HCl (Zofran) 4 mg IV Q6H PRN PRN Reason: Nausea/Vomiting Oxybutynin Chloride (Oxybutynin Er) 5 mg PO DAILY [facility] Last Admin: 02/23/17 08:31 Dose: 5 mg Polyethylene Glycol (Miralax) 17 gm PO DAILY PRN PRN Reason: Constipation Potassium Chloride (Pharmacy To Dose - Potassium Replacement) 0 dose .XX ASDIRECTED PRN PRN Reason: RX TO WATCH K LEVELS Rivaroxaban (Xarelto) 15 mg PO BID [facility] Last Admin: 02/23/17 08:32 Dose: 15 mg Senna/Docusate Sodium (Senna Plus) 1 tab PO BID PRN PRN Reason: Constipation Sodium Chloride (Saline Flush) 10 ml FLUSH ASDIRECTED PRN PRN Reason: Keep Vein Open Temazepam (Restoril) 7.5 mg PO BEDTIME PRN PRN Reason: Sleep Vit A/Vit C/Vit E/Selen/Cu/Zn/Lutei (Icaps Mv) 1 tab PO DAILY [facility] Last Admin: 02/23/17 08:31 Dose: 1 tab Discontinued Medications Sodium Chloride (Normal Saline) 1,000 mls @ 100 mls/hr IV ASDIRECTED [facility] Last Admin: 02/21/17 23:00 Dose: 100 mls/hr Vancomycin HCl 1 gm/Vancomycin HCl 250 mg/ Sodium Chloride 250 mls @ 166 mls/ hr IV Q24H [facility] Last Admin: 02/21/17 08:28 Dose: 166 mls/hr Magnesium Sulfate 2 gm/ Premix 50 mls @ 50 mls/hr IV ONETIME ONE Stop: 02/21/17 20:29 Last Admin: 02/21/17 19:32 Dose: 50 mls/hr Magnesium Sulfate 2 gm/ Premix 50 mls @ 50 mls/hr IV ONETIME ONE Stop: 02/22/17 12:59 Last Admin: 02/22/17 12:44 Dose: 50 mls/hr Lorazepam (Ativan) 1 mg IV ONETIME ONE Stop: 02/20/17 14:46 Last Admin: 02/20/17 16:10 Dose: Not Given Metformin HCl (Glucophage) 500 mg PO BEDTIME [facility] Last Admin: 02/21/17 21:05 Dose: 500 mg Pneumococcal Polyvalent Vaccine (Pneumovax 23) 0.5 ml IM .ONCE ONE Stop: 02/20/17 17:20 Potassium Chloride (Klor-Con M20) 20 meq PO Q3H TUNDE Stop: 02/22/17 15:01 Last Admin: 02/22/17 15:17 Dose: 20 meq Rivaroxaban (Xarelto) 10 mg PO DAILY [facility] Last Admin: 02/22/17 08:00 Dose: 10 mg Rivaroxaban (Xarelto) 5 mg PO ONETIME ONE Stop: 02/22/17 09:17 Last Admin: 02/22/17 10:41 Dose: 5 mg Tramadol HCl (Ultram) 50 mg PO ONETIME ONE Stop: 02/20/17 12:27 Last Admin: 02/20/17 12:35 Dose: 50 mg Vancomycin HCl (Pharmacy To Dose - Vancomycin) 0 dose .XX ASDIRECTED PRN PRN Reason: RX TO DOSE VANCOMYCIN - Exam General: Reports: Alert, Oriented, Cooperative, No Acute Distress, Other ( Morbidly Obese) HEENT: Reports: Pupils Equal, Pupils Reactive, EOMI, Mucous Membr. Moist/[place] Neck: Reports: Supple, Trachea Midline, No JVD, No Thyromegaly, Other (short and thick) Lungs: Reports: Normal Respiratory Effort, Decreased Breath Sounds Cardiovascular: Reports: Regular Rate, Regular Rhythm GI/Abdominal Exam: Normal Bowel Sounds, Soft, Non-Tender, No Organomegaly, No Distention, No Abnormal Bruit, No Mass, Other (Obese) (Female) Exam: Deferred Rectal (Female) Exam: Deferred Back Exam: Reports: Normal Inspection, Decreased Range of Motion Extremities: Other Skin: Reports: Warm, Dry, Intact Neurological: Reports: No New Focal Deficit Psy/Mental Status: Reports: Alert, Normal Affect, Normal Mood *Q Meaningful Use (DIS) - VTE *Q VTE Criteria *Q: - Stroke *Q Stroke Criteria *Q: - AMI *Q AMI Criteria *Q:
== END 2017-02-23 13:47 | disposition home or self-care (01) | DRG 300 ==
LOC: JD.ED 11:34 → UNDOADMIN 14:27 → JD.MS 14:27 → UNDODISIN 02-23 13:47
PROVIDERS: ADMIT Internal Medicine; ATTEND Internal Medicine
DX: L03.116 Cellulitis of left lower limb (principal); I87.2 Venous insufficiency (chronic) (peripheral); I10 Essential (primary) hypertension; Z68.42 Body mass index [BMI] 45.0-49.9, adult; E11.65 Type 2 diabetes mellitus with hyperglycemia; Z79.84 Long term (current) use of oral hypoglycemic drugs; E66.01 Morbid (severe) obesity due to excess calories; E11.9 Type 2 diabetes mellitus without complications; Z86.711 Personal history of pulmonary embolism; Z86.718 Personal history of other venous thrombosis and embolism; Z79.01 Long term (current) use of anticoagulants; H54.7 Unspecified visual loss; K21.9 Gastro-esophageal reflux disease without esophagitis; R32 Unspecified urinary incontinence; R06.02 Shortness of breath; G89.29 Other chronic pain; M54.9 Dorsalgia, unspecified; Z88.8 Allergy status to other drugs, medicaments and biological substances; Z79.82 Long term (current) use of aspirin; Z79.899 Other long term (current) drug therapy; Z87.891 Personal history of nicotine dependence
CPT/HCPCS: 36415; 80053; 83036; 83880; 84439; 84443; 84484; 85025; 86140; 93005; 99285; A9270; 80048; 81001; 82962; 83735; 87040; 93923; 97116-GP; 97162-GP; 97165-GO; 99284; J0360; J1815-GY; J3370; J3475; J7040; J7050

== ENCOUNTER 2017-04-29 20:15 | Emergency (ER) | payer MEDICARE, BC ==
[2017-04-29 20:21] VITALS: BP 161/77
--- NOTE | 2017-04-29 20:42 | EDM.PDOC ---
ED HPI GENERAL MEDICAL PROBLEM - General Chief Complaint: Head Injury Stated Complaint: [facility] Time Seen by Provider: 04/29/17 20:17 - History of Present Illness INITIAL COMMENTS - FREE TEXT/NARRATIVE: 81-year-old female presents emergency room, brought in by EMS after falling and hitting her face. Patient is taking Xarelto for a PE. She's been on it since the last weekend January. Patient was getting out of her car was supposed to be using her walker but used her cane lost her balance and fell forward. She denies any other injuries no loss of consciousness she has some facial discomfort and swelling but otherwise really has no complaints initially she had some lower abdominal discomfort but this seems to have resolved. She has a little bit of swelling above her left eye between her eyebrow and upper nose on her forehead she's had no dizziness no nausea no vomiting. Patient has had no palpitations breathing difficulty shortness of breath or chest pain. Today's episode the patient just lost control using her cane as cane slid back and she fell forward. Head Pain Score (Numeric/FACES): 6 Abdominal Pain Score (Numeric/FACES): 1 - Related Data Allergies Allergy/AdvReac Type Severity Reaction Status Date / Time propoxyphene AdvReac Nausea and Verified 04/29/17 20:16 Vomiting sitagliptin [From Januvia] AdvReac Edema Verified 04/29/17 20:16 Home Meds: Home Meds Atenolol [Tenormin] 25 mg PO DAILY 03/15/14 [History] Furosemide 40 mg PO BID 03/15/14 [History] Losartan [Cozaar] 50 mg PO DAILY 03/15/14 [History] Lutein Extract/Zeaxanthin Ext [Lutein 15 MG Softgel] 1 cap PO DAILY 03/15/14 [ History] Oxybutynin Chloride [Ditropan Xl] 5 mg PO DAILY 02/17/17 [History] glipiZIDE [Glipizide ER] 20 mg PO DAILY 02/17/17 [History] metFORMIN HCl [Metformin HCl] 1,000 mg PO BID #30 tablet 02/23/17 [Rx] Omeprazole 20 mg PO BID 04/29/17 [History] Potassium Chloride [Klor-Con 10] 20 meq PO DAILY 04/29/17 [History] Rivaroxaban [Xarelto] 15 mg PO DAILY 04/29/17 [History] Past Medical History HEENT History: Reports: Impaired Vision Other HEENT History: wears corrective lenses Cardiovascular History: Reports: Blood Clots/VTE/DVT, Hypertension Respiratory History: Reports: PE, SOB Gastrointestinal History: Reports: GERD Other Gastrointestinal History: occasional constipation Genitourinary History: Reports: Urinary Incontinence ROLL PICKER History: Reports: , Other (See Below) Other OB/BYN History: bilateral breast reduction for back pain Musculoskeletal History: Reports: Arthritis Endocrine/Metabolic History: Reports: Diabetes, Type II Hematologic History: Reports: Anticoagulation Therapy Dermatologic History: Reports: Cellulitis - Infectious Disease History Infectious Disease History: Reports: Chicken Pox, Measles, Mumps - Past Surgical History HEENT Surgical History: Reports: None Cardiovascular Surgical History: Reports: None Respiratory Surgical History: Reports: None GI Surgical History: Reports: Appendectomy Female Surgical History: Reports: Hysterectomy Endocrine Surgical History: Reports: None Musculoskeletal Surgical History: Reports: Other (See Below) Other Musculoskeletal Surgeries/Procedures:: 2003 bilateral total knee replacement Social & Family History - Family History Cardiac: Reports: Heart Failure Oncologic: Reports: Other (See Below) Other Oncologic Family History: stomach - Tobacco Use Smoking Status *Q: Never Smoker Used Tobacco, but Quit: Yes Month Tobacco Last Used: 1 Second Hand Smoke Exposure: No - Caffeine Use Caffeine Use: Reports: Coffee - Alcohol Use Days Per Week of Alcohol Use: 0 Number of Drinks Per Day: 0 Total Drinks Per Week: 0 - Recreational Drug Use Recreational Drug Use: No Drug Use in Last 12 Months: No ED ROS GENERAL - Review of Systems Review Of Systems: See Below Constitutional: Reports: No Symptoms HEENT: Reports: No Symptoms Respiratory: Reports: No Symptoms Cardiovascular: Reports: No Symptoms Endocrine: Reports: No Symptoms GI/Abdominal: Reports: No Symptoms : Reports: No Symptoms Neurological: Reports: No Symptoms Psychiatric: Reports: No Symptoms ED EXAM, HEAD INJURY - Physical Exam Exam: See Below Exam Limited By: No Limitations General Appearance: Alert, No Apparent Distress Head: Other (She has some swelling over left forehead) Nexus Criteria: No: Posterior, Midline Cervical Tenderness, Evidence of Intoxication, Altered Level of Consciousness, Focal Neurological Deficit, Painful Distraction Injuries Eyes: Right Eye: A-V [place], Bilateral Eye: EOMI, Normal Inspection, PERRL Ears: Normal External Exam, Normal Canal, Normal TMs Nose: Other (Superficial abrasions) Throat/Mouth: Normal Inspection, Normal Lips, Normal Teeth, Normal Gums, Normal Oropharynx, Normal Voice, No Airway Compromise. No: Dental Tenderness Neck: Non-Tender Respiratory: No Respiratory Distress, Lungs Clear, Normal Breath Sounds Back Exam: Normal Inspection. No: CVA Tenderness (L), CVA Tenderness (R) Extremities: Normal Inspection, No Pedal Edema - [place] Coma Score Best Eye Response ([place]): (4) Open Spontaneously Best Verbal Response ([place]): (5) Oriented Best Motor Response ([place]): (6) Obeys Commands Course - Vital Signs Last Recorded V/S: Last Vital Signs Temp 36.0 C 04/29/17 20:16 Pulse 60 04/29/17 20:16 Resp 19 04/29/17 20:16 BP 161/77 H 04/29/17 20:16 Pulse Ox 97 04/29/17 20:16 - Orders/Labs/Meds Orders: Active Orders 24 hr Category Date Time Status Head wo Cont [CT] Stat Exams 04/29/17 20:26 Taken CBC WITH MANUAL DIFF [HEME] Stat Lab 04/29/17 20:54 Results Labs: Laboratory Tests 04/29/17 04/29/17 Range/Units 20:54 20:54 WBC 7.59 (3.98-10.04) K/mm3 RBC 4.14 (3.98-5.22) M/mm3 Hgb 11.7 (11.2-15.7) gm/L Hct 35.9 (34.1-44.9) % MCV 86.7 (79.4-94.8) fl MCH 28.3 (25.6-32.2) pg MCHC 32.6 (32.2-35.5) g/dl RDW Std Deviation 47.4 H (36.4-46.3) fL Plt Count 221 (182-369) K/mm3 MPV 10.9 (9.4-12.3) fl PT 10.6 (8.0-13.0) SECONDS INR 0.97 APTT 30 (22-36) SECONDS - Radiology Interpretation Free Text/Narrative:: Patient's last tetanus shot was about a year ago. Patient had a head CT done which shows no acute changes she has some calcifications noted. Patient will be discharged home Departure - Departure Time of Disposition: 21:38 Disposition: Home, Self-Care 01 Clinical Impression: Head injury - Discharge Information Referrals: Bev Del Cid MD [Primary Care Provider] - Forms: ED Department Discharge Additional Instructions: Return to the emergency room with any questions problems worsening symptoms. This evening be awoken every couple hours to ensure that you're acting mostly normal. Continue your routine medications. Follow-up with your regular provider later this week if needed. - My Orders Last 24 Hours: My Active Orders 04/29/17 20:26 Head wo Cont [CT] Stat 04/29/17 20:54 CBC WITH MANUAL DIFF [HEME] Stat - Assessment/Plan Last 24 Hours: My Active Orders 04/29/17 20:26 Head wo Cont [CT] Stat 04/29/17 20:54 CBC WITH MANUAL DIFF [HEME] Stat
--- NOTE | 2017-04-30 09:09 | CT ---
Head CT Technique: Multiple axial sections through the brain were obtained. Intravenous contrast was not utilized. Comparison: No previous intracranial imaging is available. Findings: Soft tissue hematoma is seen within the left frontal scalp. Ventricles along with basal cisterns and sulci over the convexities are moderately prominent. Calcification is seen along the interhemispheric falx. Very minimal areas of diminished density noted within the periventricular and subcortical white matter as well as within the basal ganglia compatible with small vessel ischemic demyelination change. No evidence of intracranial hemorrhage. No midline shift or mass effect is seen. Bone window settings were reviewed which show the visualized sinuses to appear clear. No acute calvarial abnormality is identified. Impression: 1. Soft tissue hematoma within the left frontal scalp. 2. Senescent change as described above. 3. No acute intracranial abnormality is identified. Diagnostic code #3 I agree with preliminary report issued by [facility] ([facility] report finalized on 04/29/17, 10:22 PM Central Time)
== END 2017-04-29 21:45 | disposition home or self-care (01) ==
LOC: JD.ED 20:15
DX: S09.90XA Unspecified injury of head, initial encounter (principal); I10 Essential (primary) hypertension; K21.9 Gastro-esophageal reflux disease without esophagitis; E11.9 Type 2 diabetes mellitus without complications; Z79.01 Long term (current) use of anticoagulants; Z96.653 Presence of artificial knee joint, bilateral; Z87.891 Personal history of nicotine dependence; Z79.84 Long term (current) use of oral hypoglycemic drugs; Z79.899 Other long term (current) drug therapy; Z88.8 Allergy status to other drugs, medicaments and biological substances; W19.XXXA Unspecified fall, initial encounter
CPT/HCPCS: 36415; 70450; 70450-26; 85025; 85610; 85730; 99283; 99285-25